=== PATIENT | male | born 1975 | race Two or more races ===

== ENCOUNTER 2018-02-09 13:09 | Emergency (ER) | payer MEDICAID ==
[~2018-02-09] VITALS: Ht 597.6 cm; Wt 114.0 kg
[~2018-02-09 13:09] MED LIST: LISI30TA39 PO; MUPI15CR TP
[2018-02-09] MEDS ORDERED: PRED50TA PO (13:24)
[2018-02-09] MEDS ORDERED: predniSONE 20 mg tablet PO ONE (13:25)
[2018-02-09] MEDS ORDERED: diphenhydrAMINE 25mg capsule PO ONE (13:25)
[2018-02-09 13:51] VITALS: BP 148/81
== END 2018-02-09 13:54 | disposition home or self-care (01) ==
LOC: ER 13:09
DX: R21 Rash and other nonspecific skin eruption (principal); I10 Essential (primary) hypertension; E11.9 Type 2 diabetes mellitus without complications; Z79.899 Other long term (current) drug therapy
CPT/HCPCS: 99283; J7512; Q0163

== ENCOUNTER 2018-09-10 13:12 | Emergency (ER) | payer MEDICAID ==
[~2018-09-10] VITALS: Ht 177.8 cm; Wt 127.3 kg
[~2018-09-10 13:12] MED LIST changes: +PRED50TA PO
[2018-09-10] MEDS ORDERED: gabapentin 400mg capsule PO STA (14:18)
[2018-09-10] MEDS ORDERED: gabapentin 100mg capsule PO STA (14:21)
[2018-09-10 14:56] LABS: BASOPHILS # (AUTO) 0.1 X10'3 (0-0.2); BASOPHILS % (AUTO) 0.7 % (0-1); EOSINOPHILS # (AUTO) 0.1 X10'3 (0-0.9); EOSINOPHILS % (AUTO) 1.6 % (0-6); HEMATOCRIT 48.5 % (42.0-52.0); HEMOGLOBIN 16.4 g/dl (14.0-17.9); LYMPHOCYTES # (AUTO) 1.8 X10'3 (1.1-4.8); LYMPHOCYTES % (AUTO) 22.7 % (21-51); MEAN CORPUSCULAR HEMOGLOBIN 29.3 PG (27.0-31.0); MEAN CORPUSCULAR HGB CONC 33.9 g/dL (33.0-36.5); MEAN CORPUSCULAR VOLUME 86.4 FL (78-98); MEAN PLATELET VOLUME 7.6 FL (7.4-10.4); MONOCYTES # (AUTO) 0.6 X10'3 (0-0.9); MONOCYTES % (AUTO) 7.6 % (2-12); NEUTROPHILS # (AUTO) 5.5 X10'3 (1.8-7.7); NEUTROPHILS % (AUTO) 67.4 % (42-75); PLATELET COUNT 436 X10'3 (140-440); RED BLOOD COUNT 5.61 X10'6 (4.70-6.10); RED CELL DISTRIBUTION WIDTH 11.6 % (11.5-14.5); WHITE BLOOD COUNT 8.1 X10'3 (4.5-11.0)
[2018-09-10 15:24] LABS: ALANINE AMINOTRANSFERASE 18 U/L (12-78); ALBUMIN 3.3 G/DL (3.4-5.0); ALBUMIN/GLOBULIN RATIO 0.8 (1.1-1.5); ALKALINE PHOSPHATASE 109 IU/L (46-116); ANION GAP 14 (8-16); ASPARTATE AMINO TRANSFERASE 17 U/L (10-37); BILIRUBIN,TOTAL 0.3 MG/DL (0.1-1.0); BLOOD UREA NITROGEN 28 MG/DL (7-18); BUN/CREATININE RATIO 23.9 (5.4-32.0); CALCIUM 9.4 MG/DL (8.5-10.1); CHLORIDE 102 MMOL/L (99-107); CREATININE 1.17 MG/DL (0.60-1.10); GLUCOSE 287 MG/DL (70-104); POTASSIUM 3.8 MMOL/L (3.5-5.1); SODIUM 138 MMOL/L (135-145); TOTAL CARBON DIOXIDE 22.2 MMOL/L (24-32); TOTAL PROTEIN 7.4 G/DL (6.4-8.2); eGFR 69 ML/MIN
[2018-09-10] MEDS ORDERED: GABA-530 PO (15:32)
[2018-09-10] MEDS ORDERED: traMADol 50MG tablet PO ONE (15:45)
[2018-09-10] MEDS ORDERED: ketorolac trometh inj. 60 MG/2 ML VIAL IM ONE (15:45)
[2018-09-10 16:01] VITALS: BP 114/70
== END 2018-09-10 16:03 | disposition home or self-care (01) ==
LOC: ER 13:13
DX: M79.671 Pain in right foot (principal); M79.672 Pain in left foot; E11.9 Type 2 diabetes mellitus without complications; I10 Essential (primary) hypertension
CPT/HCPCS: 36415; 80053; 83605; 84145; 84550; 85025; 96372; 99283; J1885

== ENCOUNTER 2018-11-14 13:11 | Inpatient (IN) | payer MEDICAID ==
[~2018-11-14] VITALS: Ht 175.3 cm; Wt 119.0 kg
[~2018-11-14 13:11] MED LIST changes: +GABA-530 PO
[2018-11-14] MEDS ORDERED: normal saline 1000ML IV soln IV ONE (14:15)
[2018-11-14] MEDS ORDERED: vancomycin/NS 1 GM ADD-VANTAGE 250 ML IV ONE ×2 (14:15→15:15)
[2018-11-14] MEDS ORDERED: morphine 4 MG/ML inj SYRINge IV ONE (14:15)
[2018-11-14] MEDS ORDERED: piperacillin/tazo 3.375gm/50ml 50 ML IV ONE (14:15)
[2018-11-14 14:53] LABS: BASOPHILS # (AUTO) 0.2 X10'3 (0-0.2); BASOPHILS % (AUTO) 1.4 % (0-1); EOSINOPHILS # (AUTO) 0.1 X10'3 (0-0.9); EOSINOPHILS % (AUTO) 0.7 % (0-6); HEMATOCRIT 43.3 % (42.0-52.0); HEMOGLOBIN 14.6 g/dl (14.0-17.9); LYMPHOCYTES # (AUTO) 1.8 X10'3 (1.1-4.8); LYMPHOCYTES % (AUTO) 15.8 % (21-51); MEAN CORPUSCULAR HEMOGLOBIN 28.3 PG (27.0-31.0); MEAN CORPUSCULAR HGB CONC 33.8 g/dL (33.0-36.5); MEAN CORPUSCULAR VOLUME 83.9 FL (78-98); MEAN PLATELET VOLUME 7.5 FL (7.4-10.4); MONOCYTES % (AUTO) 8.6 % (2-12); NEUTROPHILS # (AUTO) 8.6 X10'3 (1.8-7.7); NEUTROPHILS % (AUTO) 73.5 % (42-75); PLATELET COUNT 436 X10'3 (140-440); RED BLOOD COUNT 5.16 X10'6 (4.70-6.10); RED CELL DISTRIBUTION WIDTH 12.8 % (11.5-14.5); WHITE BLOOD COUNT 11.7 X10'3 (4.5-11.0)
[2018-11-14 15:11] LABS: ALANINE AMINOTRANSFERASE 26 U/L (12-78); ALBUMIN/GLOBULIN RATIO 0.7 (1.1-1.5); ALKALINE PHOSPHATASE 99 IU/L (46-116); ANION GAP 8 (8-16); ASPARTATE AMINO TRANSFERASE 22 U/L (10-37); BILIRUBIN,TOTAL 0.5 MG/DL (0.1-1.0); BLOOD UREA NITROGEN 13 MG/DL (7-18); BUN/CREATININE RATIO 13.5 (5.4-32.0); CALCIUM 8.8 MG/DL (8.5-10.1); CHLORIDE 102 MMOL/L (99-107); CREATININE 0.96 MG/DL (0.60-1.10); GLUCOSE 249 MG/DL (70-104); POTASSIUM 3.9 MMOL/L (3.5-5.1); SODIUM 135 MMOL/L (135-145); TOTAL CARBON DIOXIDE 25.2 MMOL/L (24-32); TOTAL PROTEIN 7.6 G/DL (6.4-8.2); eGFR 86 ML/MIN
[2018-11-14] MEDS: normal saline 1000ml 1,000 ML IV SCH ×2 (16:11→23:10)
[2018-11-14] MEDS ORDERED: HYDROmorphone inj. 0.5 MG/0.5 ML DISP.SYRIN IV PRN (16:15)
[2018-11-14] MEDS ORDERED: magnesium hydroxide 30ml (MOM) UD suspension PO PRN (16:15)
[2018-11-14] MEDS ORDERED: acetaminophen 325mg tablet PO PRN (16:15)
[2018-11-14] MEDS ORDERED: ondansetron/PF 4mg/2ml inj IV PRN (16:15)
[2018-11-14] MEDS ORDERED: mag hydrox/Alum hydrox/simeth 30ml oral suspension PO PRN (16:15)
[2018-11-14] MEDS ORDERED: GABA-530 PO (16:36)
[2018-11-14] MEDS ORDERED: ASPI-611 PO (16:36)
[2018-11-14] MEDS ORDERED: INSU100C10 SQ (16:40)
[2018-11-14] MEDS ORDERED: INSU100V9 SQ (16:40)
[2018-11-14] MEDS ORDERED: levoFLOXACIN-Levaquin 750MG/D5 150 ML IV SCH (17:15)
[2018-11-14] MEDS: HYDROcodone/acetaminophen 5mg/325mg tablet PO PRN (19:29)
[2018-11-14] MEDS ORDERED: dextrose 50%-water 50ml dispensing syringe IV PRN ×2 (21:05)
[2018-11-14] MEDS ORDERED: glucagon, human recombinant 1mg kit SUBCUT PRN (21:05)
[2018-11-14] MEDS ORDERED: MESSAGE TO PHARMACY PO ONE (21:05)
[2018-11-14] MEDS ORDERED: dextrose ORAL solution 15 GM/59 ML bottle PO PRN ×2 (21:05)
[2018-11-14 21:30] LABS: HEMOGLOBIN A1C 10.3 % (4.5-6.2)
--- NOTE | 2018-11-14 21:50 | NUR ---
dr. yanes updated that pt reporting over the past 1 hr he has been very sweaty, and feeling like "he cant catch his breath" He wondered if it was the norco i gave himi 1 hr ago or if his blood sugar was high or low. accucheck 250 was 255 prior to dinner 3 hr ago. vss, ra sats 98% and rr 20. Pt stood up and got into WC and reproted no dizziness. Receiving AISSATOU Mejía also notified.
[2018-11-14 22:00] VITALS: BP 138/100
--- NOTE | 2018-11-14 22:49 | NUR ---
RECEIVED PATIENT FROM ER IN STABLE CONDITION TO ROOM 4012B. NO C/O PAIN. VSS. PICTURES TAKEN.
[2018-11-14] MEDS: insulin glargine (Lantus) pen - multi-dose SQ SCH (23:12)
[2018-11-15 06:05] VITALS: BP 139/80
--- NOTE | 2018-11-15 06:10 | NUR ---
Patient in room ORTHO 4012. I have received report from GREG REYEZ and had the opportunity to ask questions and assume patient care.
--- NOTE | 2018-11-15 06:14 | NUR ---
REPORT GIVEN TO NARDA REYEZ
[2018-11-15 06:21] LABS: BASOPHILS # (AUTO) 0.1 X10'3 (0-0.2); BASOPHILS % (AUTO) 1.3 % (0-1); EOSINOPHILS # (AUTO) 0.2 X10'3 (0-0.9); EOSINOPHILS % (AUTO) 1.6 % (0-6); HEMATOCRIT 43.2 % (42.0-52.0); HEMOGLOBIN 14.6 g/dl (14.0-17.9); LYMPHOCYTES # (AUTO) 2.5 X10'3 (1.1-4.8); LYMPHOCYTES % (AUTO) 25.5 % (21-51); MEAN CORPUSCULAR HEMOGLOBIN 28.7 PG (27.0-31.0); MEAN CORPUSCULAR HGB CONC 33.7 g/dL (33.0-36.5); MEAN CORPUSCULAR VOLUME 85.1 FL (78-98); MEAN PLATELET VOLUME 7.9 FL (7.4-10.4); MONOCYTES # (AUTO) 0.9 X10'3 (0-0.9); MONOCYTES % (AUTO) 9.2 % (2-12); NEUTROPHILS # (AUTO) 6.2 X10'3 (1.8-7.7); NEUTROPHILS % (AUTO) 62.4 % (42-75); PLATELET COUNT 349 X10'3 (140-440); RED BLOOD COUNT 5.08 X10'6 (4.70-6.10); RED CELL DISTRIBUTION WIDTH 12.9 % (11.5-14.5); WHITE BLOOD COUNT 9.9 X10'3 (4.5-11.0)
[2018-11-15 06:34] LABS: ALBUMIN 2.6 G/DL (3.4-5.0); ANION GAP 7 (8-16); BLOOD UREA NITROGEN 14 MG/DL (7-18); BUN/CREATININE RATIO 15.9 (5.4-32.0); CALCIUM 8.8 MG/DL (8.5-10.1); CHLORIDE 103 MMOL/L (99-107); CREATININE 0.88 MG/DL (0.60-1.10); GLUCOSE 241 MG/DL (70-104); SODIUM 136 MMOL/L (135-145); TOTAL CARBON DIOXIDE 25.6 MMOL/L (24-32); eGFR > 90 ML/MIN
--- NOTE | 2018-11-15 07:13 | NUR ---
PAGER ID: [phone] MESSAGE: NARDA [id number] RE: ANGELA [id number] PT REPORTS SOB AND HEAVINESS, EKG SHOWS PROLONGED QT
[2018-11-15] MEDS: enoxaparin 40mg/0.4ml syringe SUBCUT SCH (07:24)
[2018-11-15] MEDS: insulin Lispro (HumaLOG) vial - multi-dose SQ SCH ×3 (08:30→19:15)
[2018-11-15 10:00] VITALS: BP 152/110
[2018-11-15] MEDS: normal saline 1000ml 1,000 ML IV SCH ×3 (12:11→19:18)
[2018-11-15] MEDS: clindamycin 600mg/D5W 50ml 50 ML IV SCH ×2 (13:16→19:22)
--- NOTE | 2018-11-15 15:35 | NUR ---
DM consult. Patient has h/o DM with current A1c of 10.3, h/o diabetic neuropathy presents with infected, edematous DM ulcer to right third toe. 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 Per another MD note patient reported that he does not take his lantus and takes short acting "whenever he needs." RD attempted visit with pt at bedside however pt was sleeping and did not wake with verbal cues. Written DM ed with referral to outpatient DM class and RD contact information provided. Will f/u with patient tomorrow to provide verbal ed. Recommend: 1. continue carb controlled diet 2. Monitor need for ONS 3. F/u with verbal ed prior to d/c 4. Weight per rx Addendum: 11/15/18 at [address] Amended: Links added.
[2018-11-15] MEDS: gabapentin 100mg capsule PO SCH (16:16)
[2018-11-15 18:00] VITALS: BP 124/89
--- NOTE | 2018-11-15 18:10 | NUR ---
Problems reprioritized. Patient report given, questions answered & plan of care reviewed with SHAYNE REYEZ.
--- NOTE | 2018-11-15 18:30 | NUR ---
PATIENT REPORT RECEIVED FROM NARDA REYEZ.
[2018-11-15] MEDS: insulin glargine (Lantus) pen - multi-dose SQ SCH (21:53)
[2018-11-15] MEDS ORDERED: VANCOMYCIN LEVEL IV ONE (22:30)
[2018-11-16] MEDS: gabapentin 100mg capsule PO SCH ×3 (00:08→16:08)
[2018-11-16] MEDS: HYDROcodone/acetaminophen 5mg/325mg tablet PO PRN (01:01)
[2018-11-16] MEDS: clindamycin 600mg/D5W 50ml 50 ML IV SCH ×3 (02:39→13:18)
--- NOTE | 2018-11-16 06:10 | NUR ---
Patient in room ORTHO 4012. I have received report from ISHAN RN AND EPIFANIO RN and had the opportunity to ask questions and assume patient care.
--- NOTE | 2018-11-16 06:11 | NUR ---
Problems reprioritized. Patient report given to Cassi REYEZ, questions answered & plan of care reviewed with .
[2018-11-16 06:49] LABS: BASOPHILS # (AUTO) 0.1 X10'3 (0-0.2); BASOPHILS % (AUTO) 0.7 % (0-1); EOSINOPHILS # (AUTO) 0.1 X10'3 (0-0.9); EOSINOPHILS % (AUTO) 1.2 % (0-6); HEMATOCRIT 45.5 % (42.0-52.0); HEMOGLOBIN 15.3 g/dl (14.0-17.9); LYMPHOCYTES # (AUTO) 2.1 X10'3 (1.1-4.8); LYMPHOCYTES % (AUTO) 20.1 % (21-51); MEAN CORPUSCULAR HEMOGLOBIN 28.4 PG (27.0-31.0); MEAN CORPUSCULAR HGB CONC 33.7 g/dL (33.0-36.5); MEAN CORPUSCULAR VOLUME 84.4 FL (78-98); MEAN PLATELET VOLUME 8.1 FL (7.4-10.4); NEUTROPHILS # (AUTO) 7.4 X10'3 (1.8-7.7); PLATELET COUNT 419 X10'3 (140-440); RED BLOOD COUNT 5.39 X10'6 (4.70-6.10); RED CELL DISTRIBUTION WIDTH 12.6 % (11.5-14.5); WHITE BLOOD COUNT 10.7 X10'3 (4.5-11.0)
[2018-11-16 07:03] LABS: ALBUMIN 2.5 G/DL (3.4-5.0); ANION GAP 10 (8-16); BLOOD UREA NITROGEN 10 MG/DL (7-18); BUN/CREATININE RATIO 13.2 (5.4-32.0); CALCIUM 8.7 MG/DL (8.5-10.1); CHLORIDE 103 MMOL/L (99-107); CREATININE 0.76 MG/DL (0.60-1.10); GLUCOSE 137 MG/DL (70-104); SODIUM 138 MMOL/L (135-145); TOTAL CARBON DIOXIDE 25.2 MMOL/L (24-32); eGFR > 90 ML/MIN
--- NOTE | 2018-11-16 07:25 | NUR ---
PAGER ID: [phone] MESSAGE: NARDA [id number] RE: ANGELA [id number] CRITICAL K 3.0, CAN I PUT ON PROTOCOL?
[2018-11-16] MEDS ORDERED: potassium Cl 20 mEq SR tablet PO PRN (07:30)
[2018-11-16] MEDS ORDERED: potassium Cl 40MEQ/NS 500ml 500 ML IV PRN ×2 (07:30)
[2018-11-16] MEDS: normal saline 1000ml 1,000 ML IV SCH (07:58)
[2018-11-16] MEDS ORDERED: aspirin 81mg tablet.DR PO SCH (08:00)
[2018-11-16] MEDS ORDERED: LISINOPRIL 30 MG PO SCH (08:00)
[2018-11-16] MEDS ORDERED: non-formulary drug (Aspirin (Aspir 81) 1 TAB) PO SCH (08:00)
[2018-11-16] MEDS ORDERED: lisinopril 10 MG tablet PO SCH (08:00)
[2018-11-16] MEDS: potassium Cl 20 mEq SR tablet PO PRN ×3 (08:02→16:08)
[2018-11-16] MEDS: enoxaparin 40mg/0.4ml syringe SUBCUT SCH (08:08)
[2018-11-16] MEDS: insulin Lispro (HumaLOG) vial - multi-dose SQ SCH ×2 (08:40→13:17)
[2018-11-16 10:00] VITALS: BP 143/97
[2018-11-16] MEDS ORDERED: CLIN150C2 PO (11:28)
--- NOTE | 2018-11-16 11:29 | NUR ---
PATIENT CAN BE DISCHARGED AFTER HE RECEIVES HIS POTASSIUM REPLACEMENTS, PER DR GARZA.
--- NOTE | 2018-11-16 15:14 | NUR ---
DM consult. Patient has h/o DM with current A1c of 10.3, h/o diabetic neuropathy presents with infected, edematous DM ulcer to right third toe. 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 Per another MD note patient reported that he does not take his lantus and takes short acting "whenever he needs." DIAMOND attempted visit with pt at bedside however pt was sleeping and did not wake with verbal cues. Patient seen at bedside today to discuss the written DM ed with referral to outpatient DM class. Patient reported to RD that he is aware of needing to take a long acting and short acting insulin but does not take it. He says he "does not care" d/t recently losing contact with his children and being homeless. Pt does not feel motivated to care for himself due to many personal barriers. Encouraged that patient take his medications as prescribed and to attend outpatient DM class. Discussed risk of not controlling his blood glucose and his wound. Patient stated his previous A1c was 18. Recommend: 1. continue carb controlled diet 2. Monitor need for ONS 3. Weight per rx Addendum: 11/16/18 at [address] Amended: Links added.
== END 2018-11-16 16:25 | disposition home or self-care (01) | DRG 342 ==
LOC: ER 13:11 → ORTHO 4S 16:13 → CMPBEDREQ 23:17
PROVIDERS: ADMIT Family Medicine; ATTEND Family Medicine
DX: M84.477A Pathological fracture, right toe(s), initial encounter for fracture (principal); E11.49 Type 2 diabetes mellitus with other diabetic neurological complication; E11.621 Type 2 diabetes mellitus with foot ulcer; L97.519 Non-pressure chronic ulcer of other part of right foot with unspecified severity; L03.115 Cellulitis of right lower limb; I10 Essential (primary) hypertension; Z79.4 Long term (current) use of insulin; Z91.14 Patient's other noncompliance with medication regimen; Z79.899 Other long term (current) drug therapy; Z79.82 Long term (current) use of aspirin; E87.6 Hypokalemia
CPT/HCPCS: 36415; 73630; 80048; 80053; 82948; 83036; 83605; 84145; 85025; 87040; 87070; 93005; 96365; 96368; 96375; 99285; G0378; J1650; J1815; J1956; J2270; J2543; J3370; J3490; J7030

== ENCOUNTER 2019-01-09 17:43 | Emergency (ER) | payer MEDICAID ==
[~2019-01-09] VITALS: Ht 157.5 cm; Wt 113.6 kg
[~2019-01-09 17:43] MED LIST changes: +ASPI-611 PO; +INSU100C10 SQ; +INSU100V9 SQ; -MUPI15CR TP; -PRED50TA PO
[2019-01-09] MEDS ORDERED: normal saline 1000ML IV soln IVB ONE (18:45)
[2019-01-09 19:22] LABS: BASOPHILS # (AUTO) 0.1 X10'3 (0-0.2); BASOPHILS % (AUTO) 0.4 % (0-1); EOSINOPHILS % (AUTO) 0.2 % (0-6); HEMATOCRIT 45.2 % (42.0-52.0); HEMOGLOBIN 15.4 g/dl (14.0-17.9); LYMPHOCYTES # (AUTO) 1.2 X10'3 (1.1-4.8); LYMPHOCYTES % (AUTO) 8.6 % (21-51); MEAN CORPUSCULAR HEMOGLOBIN 29.2 PG (27.0-31.0); MEAN CORPUSCULAR VOLUME 85.8 FL (78-98); MEAN PLATELET VOLUME 7.8 FL (7.4-10.4); MONOCYTES # (AUTO) 0.9 X10'3 (0-0.9); MONOCYTES % (AUTO) 6.8 % (2-12); NEUTROPHILS # (AUTO) 11.5 X10'3 (1.8-7.7); PLATELET COUNT 358 X10'3 (140-440); RED BLOOD COUNT 5.27 X10'6 (4.70-6.10); RED CELL DISTRIBUTION WIDTH 13.1 % (11.5-14.5); WHITE BLOOD COUNT 13.7 X10'3 (4.5-11.0)
[2019-01-09 19:29] LABS: ALANINE AMINOTRANSFERASE 22 U/L (12-78); ALBUMIN 2.7 G/DL (3.4-5.0); ALBUMIN/GLOBULIN RATIO 0.6 (1.1-1.5); ALKALINE PHOSPHATASE 85 IU/L (46-116); ANION GAP 10 (8-16); ASPARTATE AMINO TRANSFERASE 20 U/L (10-37); BLOOD UREA NITROGEN 15 MG/DL (7-18); BUN/CREATININE RATIO 10.6 (5.4-32.0); CALCIUM 8.7 MG/DL (8.5-10.1); CHLORIDE 101 MMOL/L (99-107); CREATININE 1.42 MG/DL (0.60-1.10); GLUCOSE 301 MG/DL (70-104); POTASSIUM 3.3 MMOL/L (3.5-5.1); SODIUM 133 MMOL/L (135-145); TOTAL CARBON DIOXIDE 22.3 MMOL/L (24-32); TOTAL PROTEIN 7.1 G/DL (6.4-8.2); eGFR 55 ML/MIN
[2019-01-09] MEDS ORDERED: piperacillin/tazo 3.375gm/50ml 50 ML IV ONE (20:00)
[2019-01-09] MEDS ORDERED: normal saline 1000ML IV soln IV ONE (20:00)
--- NOTE | 2019-01-09 20:30 | NUR ---
I ASKED MD ANDERSON IF HE INTENDED PT TO HAVE 3L NS, HE SAID ONLY GIVE 2L, CANCELLED 1L, ONLY 2L GIVEN
[2019-01-09 20:40] VITALS: BP 139/98
[2019-01-09] MEDS ORDERED: AMOX-422 PO (20:46)
[2019-01-09] MEDS ORDERED: SULF1TAB49 PO (20:46)
[2019-01-09 20:48] LABS: CLARITY,URINE CLEAR (Clear); COLOR,URINE YELLOW (Yellow); GLUCOSE, URINE >=1000 mg/dl (Neg); KETONES,URINE NEGATIVE (Neg); LEUKOCYTE ESTERASE ,URINE NEGATIVE (Neg); NITRITES, URINE NEGATIVE (Neg); OCCULT BLOOD,URINE TRACE-INTACT (Neg); PROTEIN,URINE >=300 mg/dl (Neg)
[2019-01-09] MEDS ORDERED: HYDR-4353 PO (20:49)
[2019-01-09] MEDS ORDERED: HYDROcodone/acetaminophen 10/325mg tab PO ONE (20:50)
[2019-01-09 20:52] LABS: UA COLLECTION TYPE CLN CATCH MIDSTREAM
[2019-01-09 20:57] LABS: WBC,URINE NONE SEEN /HPF (0-4)
[2019-01-09 20:58] LABS: BACTERIA,URINE NONE SEEN /HPF (Neg); RBC,URINE NONE SEEN /HPF (0-2)
[2019-01-09 20:59] LABS: SQUAMOUS EPITHELIAL CELL,UR FEW /LPF (FEW)
== END 2019-01-09 21:21 | disposition home or self-care (01) ==
LOC: ER 17:44
DX: L02.416 Cutaneous abscess of left lower limb (principal); L03.116 Cellulitis of left lower limb; E11.65 Type 2 diabetes mellitus with hyperglycemia; I10 Essential (primary) hypertension; Z98.890 Other specified postprocedural states; Z79.82 Long term (current) use of aspirin; Z79.4 Long term (current) use of insulin
CPT/HCPCS: 36415; 80053; 81001; 82948; 85025; 96365; 99283; J2543; J7030

== ENCOUNTER 2019-02-05 11:05 | Emergency (ER) | payer MEDICAID ==
[~2019-02-05] VITALS: Ht 177.8 cm; Wt 113.6 kg
[~2019-02-05 11:05] MED LIST changes: +HYDR-4353 PO
[2019-02-05 11:34] LABS: BASOPHILS # (AUTO) 0.1 X10'3 (0-0.2); BASOPHILS % (AUTO) 0.8 % (0-1); EOSINOPHILS # (AUTO) 0.1 X10'3 (0-0.9); EOSINOPHILS % (AUTO) 1.6 % (0-6); HEMATOCRIT 44.1 % (42.0-52.0); HEMOGLOBIN 14.7 g/dl (14.0-17.9); LYMPHOCYTES # (AUTO) 1.7 X10'3 (1.1-4.8); LYMPHOCYTES % (AUTO) 20.4 % (21-51); MEAN CORPUSCULAR HGB CONC 33.2 g/dL (33.0-36.5); MEAN CORPUSCULAR VOLUME 87.3 FL (78-98); MEAN PLATELET VOLUME 7.7 FL (7.4-10.4); MONOCYTES # (AUTO) 0.7 X10'3 (0-0.9); MONOCYTES % (AUTO) 8.3 % (2-12); NEUTROPHILS # (AUTO) 5.9 X10'3 (1.8-7.7); NEUTROPHILS % (AUTO) 68.9 % (42-75); PLATELET COUNT 310 X10'3 (140-440); RED BLOOD COUNT 5.05 X10'6 (4.70-6.10); RED CELL DISTRIBUTION WIDTH 13.5 % (11.5-14.5); WHITE BLOOD COUNT 8.5 X10'3 (4.5-11.0)
[2019-02-05 11:45] LABS: PARTIAL THROMBOPLASTIN TIME 26 SECONDS (22-32)
[2019-02-05 11:48] LABS: ALANINE AMINOTRANSFERASE 27 U/L (12-78); ALBUMIN 2.7 G/DL (3.4-5.0); ALBUMIN/GLOBULIN RATIO 0.6 (1.1-1.5); ALKALINE PHOSPHATASE 142 IU/L (46-116); ANION GAP 7 (8-16); ASPARTATE AMINO TRANSFERASE 19 U/L (10-37); BILIRUBIN,TOTAL 0.4 MG/DL (0.1-1.0); BLOOD UREA NITROGEN 16 MG/DL (7-18); BUN/CREATININE RATIO 12.9 (5.4-32.0); CALCIUM 8.6 MG/DL (8.5-10.1); CHLORIDE 100 MMOL/L (99-107); CREATININE 1.24 MG/DL (0.60-1.10); POTASSIUM 4.1 MMOL/L (3.5-5.1); SODIUM 131 MMOL/L (135-145); TOTAL CARBON DIOXIDE 24.4 MMOL/L (24-32); eGFR 64 ML/MIN
[2019-02-05 11:51] LABS: GLUCOSE 494 MG/DL (70-104)
[2019-02-05 12:16] VITALS: BP_DIAS 107
[2019-02-05] MEDS ORDERED: insulin glargine (Lantus) pen - multi-dose SQ ONE (13:00)
[2019-02-05] MEDS ORDERED: lisinopril 10 MG tablet PO ONE (13:00)
[2019-02-05] MEDS ORDERED: insulin regular, human 10 units/0.1 ml syringe SQ ONE (13:00)
[2019-02-05] MEDS ORDERED: nitroGLYCERIN 0.2mg/hour patch TD ONE (13:00)
[2019-02-05] MEDS ORDERED: aspirin 81mg tab.chew PO ONE (13:00)
[2019-02-05] MEDS ORDERED: LISI30TA4 PO (13:14)
[2019-02-05 13:21] VITALS: BP_SYST 166
== END 2019-02-05 13:59 | disposition home or self-care (01) ==
LOC: ER 11:07
DX: R06.00 Dyspnea, unspecified (principal); R06.02 Shortness of breath; R05 Cough; R07.89 Other chest pain; I10 Essential (primary) hypertension; E11.65 Type 2 diabetes mellitus with hyperglycemia; Z79.4 Long term (current) use of insulin; Z79.82 Long term (current) use of aspirin; Z79.899 Other long term (current) drug therapy; Z98.890 Other specified postprocedural states; Z91.19 Patient's noncompliance with other medical treatment and regimen
CPT/HCPCS: 36415; 71045; 80053; 84484; 85025; 85610; 85730; 93005; 96372; 99284; J1815

== ENCOUNTER 2019-02-06 11:25 | Emergency (ER) | payer MEDICAID ==
[~2019-02-06] VITALS: Ht 177.8 cm; Wt 115.0 kg
[~2019-02-06 11:25] MED LIST changes: +LISI30TA4 PO
[2019-02-06] MEDS ORDERED: insulin regular, human 10 units/0.1 ml syringe IV ONE (11:30)
[2019-02-06] MEDS ORDERED: normal saline 1000ML IV soln IVB ONE (11:30)
[2019-02-06] MEDS ORDERED: insulin regular, human 10 units/0.1 ml syringe SQ ONE (11:30)
[2019-02-06 11:48] LABS: BASOPHILS # (AUTO) 0.1 X10'3 (0-0.2); BASOPHILS % (AUTO) 1.2 % (0-1); EOSINOPHILS # (AUTO) 0.1 X10'3 (0-0.9); EOSINOPHILS % (AUTO) 1.6 % (0-6); HEMATOCRIT 42.4 % (42.0-52.0); LYMPHOCYTES # (AUTO) 1.3 X10'3 (1.1-4.8); LYMPHOCYTES % (AUTO) 15.9 % (21-51); MEAN CORPUSCULAR HEMOGLOBIN 28.8 PG (27.0-31.0); MEAN CORPUSCULAR VOLUME 87.2 FL (78-98); MEAN PLATELET VOLUME 7.8 FL (7.4-10.4); MONOCYTES # (AUTO) 0.7 X10'3 (0-0.9); NEUTROPHILS % (AUTO) 73.3 % (42-75); PLATELET COUNT 298 X10'3 (140-440); RED BLOOD COUNT 4.87 X10'6 (4.70-6.10); RED CELL DISTRIBUTION WIDTH 13.7 % (11.5-14.5); WHITE BLOOD COUNT 8.2 X10'3 (4.5-11.0)
--- NOTE | 2019-02-06 11:56 | NUR ---
OHLFS WANTS BOTH DOSES OF HUMALIN GIVEN TO THE PT IV AND SQ.
[2019-02-06 11:59] LABS: ALANINE AMINOTRANSFERASE 22 U/L (12-78); ALBUMIN 2.6 G/DL (3.4-5.0); ALBUMIN/GLOBULIN RATIO 0.6 (1.1-1.5); ALKALINE PHOSPHATASE 154 IU/L (46-116); ANION GAP 7 (8-16); ASPARTATE AMINO TRANSFERASE 14 U/L (10-37); BILIRUBIN,TOTAL 0.3 MG/DL (0.1-1.0); BLOOD UREA NITROGEN 16 MG/DL (7-18); BUN/CREATININE RATIO 13.8 (5.4-32.0); CALCIUM 8.7 MG/DL (8.5-10.1); CHLORIDE 103 MMOL/L (99-107); CREATININE 1.16 MG/DL (0.60-1.10); GLUCOSE 441 MG/DL (70-104); POTASSIUM 4.2 MMOL/L (3.5-5.1); SODIUM 134 MMOL/L (135-145); TOTAL CARBON DIOXIDE 24.5 MMOL/L (24-32); TOTAL PROTEIN 6.8 G/DL (6.4-8.2); eGFR 69 ML/MIN
[2019-02-06 12:25] LABS: CLARITY,URINE CLEAR (Clear); COLOR,URINE YELLOW (Yellow); GLUCOSE, URINE >=1000 mg/dl (Neg); KETONES,URINE NEGATIVE (Neg); LEUKOCYTE ESTERASE ,URINE NEGATIVE (Neg); NITRITES, URINE NEGATIVE (Neg); OCCULT BLOOD,URINE NEGATIVE (Neg); PROTEIN,URINE 30 mg/dl (Neg); UROBILINOGEN,URINE 0.2 E.U/dL (0.2-1.0)
[2019-02-06 12:30] LABS: UA COLLECTION TYPE CLN CATCH MIDSTREAM
[2019-02-06 12:37] LABS: BACTERIA,URINE NONE SEEN /HPF (Neg); RBC,URINE NONE SEEN /HPF (0-2); SQUAMOUS EPITHELIAL CELL,UR FEW /LPF (FEW); WBC,URINE NONE SEEN /HPF (0-4)
[2019-02-06 13:08] VITALS: BP 163/92
== END 2019-02-06 13:13 | disposition home or self-care (01) ==
LOC: ER 11:25
DX: E11.65 Type 2 diabetes mellitus with hyperglycemia (principal); R22.0 Localized swelling, mass and lump, head; L53.9 Erythematous condition, unspecified; I10 Essential (primary) hypertension; Z79.82 Long term (current) use of aspirin; Z79.4 Long term (current) use of insulin; Z79.899 Other long term (current) drug therapy; Z98.890 Other specified postprocedural states
CPT/HCPCS: 36415; 80053; 81001; 82948; 84145; 85025; 96361; 96372; 96374; 99283; J1815; J7030; 96360

== ENCOUNTER 2019-02-10 10:15 | Emergency (ER) | payer MEDICAID ==
[~2019-02-10] VITALS: Ht 177.8 cm; Wt 117.3 kg
[2019-02-10 10:37] VITALS: BP 140/91
[2019-02-10] MEDS ORDERED: LIDOcaine 1% w/epiNEPHrine 1:200,000 30ml vial IM ONE (11:40)
[2019-02-10] MEDS ORDERED: ondansetron/PF 4mg/2ml inj IV ONE (11:45)
[2019-02-10] MEDS ORDERED: CEPH-572 PO (12:06)
[2019-02-10] MEDS ORDERED: SULF1TAB49 PO (12:06)
== END 2019-02-10 12:16 | disposition home or self-care (01) ==
LOC: ER 10:16
DX: L02.01 Cutaneous abscess of face (principal); I10 Essential (primary) hypertension; E11.9 Type 2 diabetes mellitus without complications; Z98.890 Other specified postprocedural states; Z79.82 Long term (current) use of aspirin; Z79.4 Long term (current) use of insulin; Z79.899 Other long term (current) drug therapy
CPT/HCPCS: 10060; 99283

== ENCOUNTER 2019-10-09 12:10 | Emergency (ER) | payer MEDICAID, OTHER ==
[~2019-10-09] VITALS: Ht 175.3 cm; Wt 116.2 kg
[~2019-10-09 12:10] MED LIST changes: -HYDR-4353 PO
--- NOTE | 2019-10-09 12:42 | NUR ---
Provider is with the patient at this time.
[2019-10-09] MEDS ORDERED: CEPH500C5 PO (12:49)
[2019-10-09] MEDS ORDERED: SULF1TAB49 PO (12:49)
[2019-10-09 13:01] VITALS: BP 149/87
== END 2019-10-09 13:00 | disposition home or self-care (01) ==
LOC: ER 12:10
DX: L03.221 Cellulitis of neck (principal); R22.1 Localized swelling, mass and lump, neck; L02.11 Cutaneous abscess of neck; I10 Essential (primary) hypertension; E11.9 Type 2 diabetes mellitus without complications; Z79.82 Long term (current) use of aspirin; Z79.4 Long term (current) use of insulin; Z79.899 Other long term (current) drug therapy
CPT/HCPCS: 99283

== ENCOUNTER 2020-08-03 11:00 | Emergency (ER) | payer MEDICAID, OTHER ==
[~2020-08-03] VITALS: Ht 175.3 cm; Wt 140.0 kg
[2020-08-03 11:06] VITALS: BP 167/114
[2020-08-03] MEDS ORDERED: LIDOcaine Viscous 15ml cup MM PRN ×2 (11:45→12:15)
[2020-08-03] MEDS ORDERED: PENI500T2 PO (12:18)
== END 2020-08-03 12:45 | disposition home or self-care (01) ==
LOC: ER 11:01
DX: K04.7 Periapical abscess without sinus (principal); R59.0 Localized enlarged lymph nodes; I10 Essential (primary) hypertension; E11.9 Type 2 diabetes mellitus without complications; Z79.82 Long term (current) use of aspirin; Z79.84 Long term (current) use of oral hypoglycemic drugs; Z79.899 Other long term (current) drug therapy
CPT/HCPCS: 41800; 99284

== ENCOUNTER 2020-12-25 01:08 | Emergency (ER) | payer MEDICAID ==
[~2020-12-25] VITALS: Ht 175.3 cm; Wt 121.9 kg
[2020-12-25] MEDS ORDERED: normal saline 1000ML IV soln IVB ONE (01:25)
[2020-12-25] MEDS ORDERED: insulin regular, human U-100 3ml vial - multi-dose IV ONE (01:25)
[2020-12-25 02:07] LABS: ALANINE AMINOTRANSFERASE 34 U/L (12-78); ALBUMIN 2.1 G/DL (3.4-5.0); ALBUMIN/GLOBULIN RATIO 0.4 (1.1-1.5); ALKALINE PHOSPHATASE 215 IU/L (46-116); ANION GAP 7 (8-16); ASPARTATE AMINO TRANSFERASE 24 U/L (10-37); BILIRUBIN,TOTAL 0.4 MG/DL (0.1-1.0); BLOOD UREA NITROGEN 13 MG/DL (7-18); BUN/CREATININE RATIO 9.4 (5.4-32.0); CALCIUM 8.9 MG/DL (8.5-10.1); CHLORIDE 95 MMOL/L (99-107); CREATININE 1.38 MG/DL (0.60-1.10); SODIUM 130 MMOL/L (135-145); TOTAL CARBON DIOXIDE 28.2 MMOL/L (24-32); eGFR 56 ML/MIN
[2020-12-25 02:08] LABS: BASOPHILS % (AUTO) 0.5 % (0-1); EOSINOPHILS # (AUTO) 0.1 X10'3 (0-0.9); EOSINOPHILS % (AUTO) 1.4 % (0-6); HEMATOCRIT 47.1 % (42.0-52.0); HEMOGLOBIN 15.3 g/dl (14.0-17.9); LYMPHOCYTES # (AUTO) 1.2 X10'3 (1.1-4.8); LYMPHOCYTES % (AUTO) 14.6 % (21-51); MEAN CORPUSCULAR HEMOGLOBIN 26.8 PG (27.0-31.0); MEAN CORPUSCULAR HGB CONC 32.4 g/dL (33.0-36.5); MEAN CORPUSCULAR VOLUME 82.5 FL (78-98); MEAN PLATELET VOLUME 7.8 FL (7.4-10.4); MONOCYTES # (AUTO) 0.9 X10'3 (0-0.9); MONOCYTES % (AUTO) 11.3 % (2-12); NEUTROPHILS # (AUTO) 5.9 X10'3 (1.8-7.7); NEUTROPHILS % (AUTO) 72.2 % (42-75); PLATELET COUNT 424 X10'3 (140-440); RED BLOOD COUNT 5.71 X10'6 (4.70-6.10); RED CELL DISTRIBUTION WIDTH 14.5 % (11.5-14.5); WHITE BLOOD COUNT 8.2 X10'3 (4.5-11.0)
[2020-12-25 02:09] LABS: GLUCOSE 604 MG/DL (70-104)
[2020-12-25] MEDS ORDERED: ondansetron/PF 4mg/2ml inj IV ONE (02:55)
[2020-12-25] MEDS ORDERED: morphine 4 MG/ML inj SYRINge IV PRN (02:55)
--- NOTE | 2020-12-25 04:01 | NUR ---
ACCUCHECK NOW 230. DR. ANDERSON AWARE AND TO ORDER EKG. PTS PAIN IS IMPROVED.
[2020-12-25 04:36] LABS: TROPONIN I < 0.04 NG/ML (0.0-0.05)
[2020-12-25 05:08] VITALS: BP 115/79
--- NOTE | 2020-12-25 05:08 | NUR ---
MD REQUEST PO CHALLENGE. PT PROVIDED CRACKERS JELLO AND SANDWICH AND PITCHER OF ICE WATER. DENIES AN NAUSEA AND REPORTS HUNGER.
--- NOTE | 2020-12-25 05:23 | NUR ---
PT TOLERATING PO CHALLENGE WITH NO PROBLEMS. JUST GOT UP TO GO TO [place]. WALKING WITH STEADY GAIT.
[2020-12-25] MEDS ORDERED: INSU200I SQ (05:45)
[2020-12-25] MEDS ORDERED: LANTUS SQ (05:45)
--- NOTE | 2020-12-25 05:57 | NUR ---
PT DC READY AND WITH STABLE VS. STATES HE DOES NOT HAVE A BLOOD SUGAR CHECKING DEVISE IT WAS STOLEN. DR. ANDERSON UPDATED AND NURSING CLAIMS CONFIGURATION ANALYST UPDATED. SHE WILL TRY TO FIND PT AN ACCUCHECK MACHINE PRIOR TO DC.
--- NOTE | 2020-12-25 06:09 | NUR ---
UNABLE TO FIND AN ACCUCHECK MACHINE TO PROVIDE PATIENT, PER ALEKSANDER MCMULLEN SUP. PT PROVIDED "[employer]" CARD FOR A DISCOUNT FOR PURCHASE
== END 2020-12-25 06:18 | disposition home or self-care (01) ==
LOC: ER 01:08
DX: E11.65 Type 2 diabetes mellitus with hyperglycemia (principal); R35.0 Frequency of micturition; M54.89 Other dorsalgia; R06.02 Shortness of breath; I10 Essential (primary) hypertension; Z79.4 Long term (current) use of insulin; Z91.19 Patient's noncompliance with other medical treatment and regimen; Z98.890 Other specified postprocedural states; Z79.82 Long term (current) use of aspirin; Z79.899 Other long term (current) drug therapy
CPT/HCPCS: 36415; 71045; 80053; 82948; 84484; 85025; 93005; 96374; 96375; 99285; J2270; J2405; J7030; J1815

== ENCOUNTER 2021-01-15 07:18 | Emergency (ER) | payer MEDICAID, OTHER ==
[~2021-01-15] VITALS: Ht 175.3 cm; Wt 122.7 kg
[~2021-01-15 07:18] MED LIST changes: +APIX5TAB3 PO; +FURO-149 PO; -GABA-530 PO; -LISI30TA4 PO; +METO-395 PO; +SPIR25TA PO
[2021-01-15 09:07] LABS: ALANINE AMINOTRANSFERASE 14 U/L (12-78); ALBUMIN 2.4 G/DL (3.4-5.0); ALBUMIN/GLOBULIN RATIO 0.4 (1.1-1.5); ALKALINE PHOSPHATASE 205 IU/L (46-116); ANION GAP 9 (8-16); ASPARTATE AMINO TRANSFERASE 21 U/L (10-37); BILIRUBIN,TOTAL 0.6 MG/DL (0.1-1.0); BLOOD UREA NITROGEN 16 MG/DL (7-18); BUN/CREATININE RATIO 15.2 (5.4-32.0); CALCIUM 8.6 MG/DL (8.5-10.1); CHLORIDE 97 MMOL/L (99-107); CREATININE 1.05 MG/DL (0.60-1.10); GLUCOSE 307 MG/DL (70-104); LIPASE < 50 U/L (73-393); POTASSIUM 4.1 MMOL/L (3.5-5.1); SODIUM 132 MMOL/L (135-145); TOTAL CARBON DIOXIDE 25.8 MMOL/L (24-32); eGFR 77 ML/MIN
[2021-01-15 09:09] LABS: CLARITY,URINE CLEAR (Clear); COLOR,URINE YELLOW (Yellow); GLUCOSE, URINE 500 mg/dl (Neg); KETONES,URINE NEGATIVE (Neg); LEUKOCYTE ESTERASE ,URINE NEGATIVE (Neg); NITRITES, URINE NEGATIVE (Neg); OCCULT BLOOD,URINE TRACE-INTACT (Neg); PROTEIN,URINE >=300 mg/dl (Neg)
[2021-01-15 09:10] LABS: BASOPHILS # (AUTO) 0.1 X10'3 (0-0.2); BASOPHILS % (AUTO) 0.8 % (0-1); EOSINOPHILS # (AUTO) 0.1 X10'3 (0-0.9); EOSINOPHILS % (AUTO) 1.7 % (0-6); HEMATOCRIT 48.7 % (42.0-52.0); HEMOGLOBIN 16.1 g/dl (14.0-17.9); LYMPHOCYTES # (AUTO) 1.4 X10'3 (1.1-4.8); LYMPHOCYTES % (AUTO) 19.2 % (21-51); MEAN CORPUSCULAR HEMOGLOBIN 26.7 PG (27.0-31.0); MONOCYTES # (AUTO) 0.9 X10'3 (0-0.9); MONOCYTES % (AUTO) 11.9 % (2-12); NEUTROPHILS # (AUTO) 4.8 X10'3 (1.8-7.7); NEUTROPHILS % (AUTO) 66.4 % (42-75); PLATELET COUNT 564 X10'3 (140-440); RED BLOOD COUNT 6.01 X10'6 (4.70-6.10); RED CELL DISTRIBUTION WIDTH 14.7 % (11.5-14.5); WHITE BLOOD COUNT 7.3 X10'3 (4.5-11.0)
[2021-01-15 09:13] LABS: UA COLLECTION TYPE CLN CATCH MIDSTREAM
[2021-01-15 09:14] LABS: BACTERIA,URINE NONE SEEN /HPF (Neg); MUCUS STRANDS NONE SEEN /LPF (Neg); RBC,URINE 0-2 /HPF (0-2); SQUAMOUS EPITHELIAL CELL,UR FEW /LPF (FEW); WBC,URINE 0-4 /HPF (0-4)
[2021-01-15 09:15] LABS: HYALINE CASTS 0-3 /LPF (NEGATIVE)
[2021-01-15] MEDS ORDERED: normal saline 1000ml 1,000 ML IV ONE (10:25)
[2021-01-15] MEDS ORDERED: mag hydrox/Alum hydrox/simeth 30ml oral suspension PO ONE (10:30)
[2021-01-15] MEDS ORDERED: pantoprazole 40 MG vial IV ONE (10:30)
[2021-01-15] MEDS ORDERED: LIDOcaine Viscous 15ml cup MM ONE (10:30)
[2021-01-15] MEDS ORDERED: ondansetron/PF 4mg/2ml inj IV ONE (10:30)
[2021-01-15] MEDS ORDERED: insulin regular, human 10 units/0.1 ml syringe IV ONE (10:40)
[2021-01-15 11:07] LABS: TROPONIN I < 0.04 NG/ML (0.0-0.05)
[2021-01-15] MEDS ORDERED: carVEDilol 3.125mg tablet PO SCH (11:50)
[2021-01-15 12:30] LABS: URINE AMPHETAMINE SCREEN NEGATIVE (Neg); URINE BARBITUATE SCREEN NEGATIVE (Neg); URINE BENZODIAZEPINES SCREEN NEGATIVE (Neg); URINE CANNABINOID SCREEN NEGATIVE (Neg); URINE COCAINE SCREEN NEGATIVE (Neg); URINE METHADONE SCREEN NEGATIVE (Neg); URINE OPIATE SCREEN POSITIVE (Neg); URINE PHENCYCLIDINE SCREEN NEGATIVE (Neg)
[2021-01-15] MEDS ORDERED: ONDA4TAB6 PO (12:34)
[2021-01-15 13:16] VITALS: BP 126/83
== END 2021-01-15 13:18 | disposition home or self-care (01) ==
LOC: ER 07:22
DX: R11.2 Nausea with vomiting, unspecified (principal); R60.9 Edema, unspecified; R10.13 Epigastric pain; R06.02 Shortness of breath; I10 Essential (primary) hypertension; E11.9 Type 2 diabetes mellitus without complications; Z98.890 Other specified postprocedural states; Z79.82 Long term (current) use of aspirin; Z79.899 Other long term (current) drug therapy
CPT/HCPCS: 36415; 71045; 80053; 80305; 81001; 82948; 83690; 83880; 84484; 85025; 93005; 96374; 96375; 99285; C9113; J1815; J2405; J7030

== ENCOUNTER 2021-01-30 16:11 | Inpatient (IN) | payer MEDICAID, OTHER ==
[~2021-01-30] VITALS: Ht 175.3 cm; Wt 114.9 kg
[~2021-01-30 16:11] MED LIST changes: +ONDA4TAB6 PO
[2021-01-30 17:34] LABS: BASOPHILS % (AUTO) 0.2 % (0-1); EOSINOPHILS % (AUTO) 0 % (0-6); HEMATOCRIT 48.4 % (42.0-52.0); LYMPHOCYTES # (AUTO) 0.9 X10'3 (1.1-4.8); LYMPHOCYTES % (AUTO) 4.4 % (21-51); MEAN CORPUSCULAR HGB CONC 33.2 g/dL (33.0-36.5); MEAN CORPUSCULAR VOLUME 81.4 FL (78-98); MEAN PLATELET VOLUME 7.8 FL (7.4-10.4); MONOCYTES # (AUTO) 1.2 X10'3 (0-0.9); MONOCYTES % (AUTO) 5.6 % (2-12); NEUTROPHILS % (AUTO) 89.8 % (42-75); PLATELET COUNT 343 X10'3 (140-440); RED BLOOD COUNT 5.94 X10'6 (4.70-6.10); RED CELL DISTRIBUTION WIDTH 15.2 % (11.5-14.5); WHITE BLOOD COUNT 21.2 X10'3 (4.5-11.0)
[2021-01-30 17:52] LABS: TOTAL CELLS COUNTED 100
[2021-01-30 17:55] LABS: LARGE PLATELETS FEW; PLATELET ESTIMATE NORMAL; STOMATOCYTES FEW
--- NOTE | 2021-01-30 18:26 | NUR ---
Spoke to DANDY Rollins over patient leaving his life vest at home. Gave brief medical history of patient. Dr. Jackson occupied with a critical care patient. Gave full report to AISSATOU Willard at shift change. Pt stable on 5 lead monitor. EKG taken.
[2021-01-30 18:43] LABS: ALANINE AMINOTRANSFERASE 6 U/L (12-78); ALKALINE PHOSPHATASE 136 IU/L (46-116); ANION GAP 12 (8-16); ASPARTATE AMINO TRANSFERASE 8 U/L (10-37); BILIRUBIN,TOTAL 1.3 MG/DL (0.1-1.0); BLOOD UREA NITROGEN 28 MG/DL (7-18); BUN/CREATININE RATIO 16.2 (5.4-32.0); CALCIUM 8.5 MG/DL (8.5-10.1); CHLORIDE 89 MMOL/L (99-107); CREATININE 1.73 MG/DL (0.60-1.10); POTASSIUM 4.7 MMOL/L (3.5-5.1); SODIUM 122 MMOL/L (135-145); TOTAL CARBON DIOXIDE 21.1 MMOL/L (24-32); TOTAL PROTEIN 8.4 G/DL (6.4-8.2); eGFR 43 ML/MIN
[2021-01-30 18:44] LABS: ALBUMIN/GLOBULIN RATIO 0.3 (1.1-1.5)
--- NOTE | 2021-01-30 18:49 | NUR ---
Assumed care of patient.
[2021-01-30 18:50] LABS: GLUCOSE 465 MG/DL (70-104)
[2021-01-30] MEDS ORDERED: IBUP-2841 PO (19:28)
[2021-01-30] MEDS ORDERED: vancomycin/NS 1 GM ADD-VANTAGE 250 ML IV ONE (20:30)
[2021-01-30] MEDS ORDERED: CefTRIAXone 2gm/D5W 50ml BAG 50 ML IV ONE (20:30)
[2021-01-30] MEDS ORDERED: aspirin 325mg tablet PO ONE (20:35)
[2021-01-30] MEDS ORDERED: PERFLUTREN PROTEIN-A MICROSPHR (Optison) 0.22 MG/ML 3ML VIAL IV PRN (20:50)
[2021-01-30] MEDS ORDERED: potassium Cl 40MEQ/1/2NS 520ml 520 ML IV PRN ×2 (20:50)
[2021-01-30] MEDS ORDERED: potassium Cl 20 mEq SR tablet PO PRN ×2 (20:50)
[2021-01-30] MEDS ORDERED: normal saline 1000ml 1,000 ML IV SCH (20:50)
[2021-01-30] MEDS ORDERED: ondansetron/PF 4mg/2ml inj IV PRN (20:50)
[2021-01-30] MEDS ORDERED: magnesium hydroxide 30ml (MOM) UD suspension PO PRN (20:50)
[2021-01-30] MEDS ORDERED: acetaminophen 325mg tablet PO PRN (20:50)
[2021-01-30] MEDS ORDERED: mag hydrox/Alum hydrox/simeth 30ml oral suspension PO PRN (20:50)
[2021-01-30] MEDS ORDERED: dextrose 50%-water 50ml dispensing syringe IV PRN ×2 (20:55)
[2021-01-30] MEDS ORDERED: glucagon, human recombinant 1mg kit SUBCUT PRN (20:55)
[2021-01-30] MEDS ORDERED: dextrose ORAL solution 15 GM/59 ML bottle PO PRN ×2 (20:55)
[2021-01-30] MEDS ORDERED: MESSAGE TO PHARMACY PO ONE (20:55)
[2021-01-30 23:00] VITALS: BP 99/63
[2021-01-30] MEDS ORDERED: insulin glargine (Lantus) pen - multi-dose SQ ONE (23:15)
[2021-01-30] MEDS: insulin Lispro (HumaLOG) vial - multi-dose SQ SCH (23:34)
[2021-01-31 02:00] VITALS: BP 107/70
--- NOTE | 2021-01-31 06:38 | NUR ---
Problems reprioritized. Patient report given, questions answered & plan of care reviewed with Zuleyka REYEZ. Addendum: 01/31/21 at 0639 by Yue Silva RN Amended: Links added.
--- NOTE | 2021-01-31 06:45 | NUR ---
Patient in room PCU 3024A. I have received report from AISSATOU LOERA and had the opportunity to ask questions and assume patient care.
[2021-01-31 07:00] VITALS: BP 136/79
[2021-01-31 07:33] LABS: BASOPHILS % (AUTO) 0.2 % (0-1); EOSINOPHILS # (AUTO) 0.1 X10'3 (0-0.9); EOSINOPHILS % (AUTO) 0.5 % (0-6); HEMATOCRIT 47.9 % (42.0-52.0); HEMOGLOBIN 15.9 g/dl (14.0-17.9); LYMPHOCYTES # (AUTO) 0.8 X10'3 (1.1-4.8); LYMPHOCYTES % (AUTO) 5.3 % (21-51); MEAN CORPUSCULAR HGB CONC 33.2 g/dL (33.0-36.5); MEAN CORPUSCULAR VOLUME 81.2 FL (78-98); MEAN PLATELET VOLUME 7.9 FL (7.4-10.4); MONOCYTES # (AUTO) 1.2 X10'3 (0-0.9); MONOCYTES % (AUTO) 7.4 % (2-12); NEUTROPHILS # (AUTO) 13.8 X10'3 (1.8-7.7); NEUTROPHILS % (AUTO) 86.6 % (42-75); PLATELET COUNT 316 X10'3 (140-440); RED CELL DISTRIBUTION WIDTH 15.2 % (11.5-14.5); WHITE BLOOD COUNT 15.9 X10'3 (4.5-11.0)
[2021-01-31 07:56] LABS: ALANINE AMINOTRANSFERASE 9 U/L (12-78); ALBUMIN 1.8 G/DL (3.4-5.0); ALBUMIN/GLOBULIN RATIO 0.3 (1.1-1.5); ALKALINE PHOSPHATASE 125 IU/L (46-116); ANION GAP 10 (8-16); ASPARTATE AMINO TRANSFERASE 8 U/L (10-37); BILIRUBIN,TOTAL 0.7 MG/DL (0.1-1.0); BLOOD UREA NITROGEN 30 MG/DL (7-18); BUN/CREATININE RATIO 23.6 (5.4-32.0); CALCIUM 8.7 MG/DL (8.5-10.1); CHLORIDE 96 MMOL/L (99-107); CREATININE 1.27 MG/DL (0.60-1.10); GLUCOSE 319 MG/DL (70-104); POTASSIUM 3.8 MMOL/L (3.5-5.1); SODIUM 130 MMOL/L (135-145); TOTAL CARBON DIOXIDE 24.1 MMOL/L (24-32); TOTAL PROTEIN 8.2 G/DL (6.4-8.2); eGFR 62 ML/MIN
[2021-01-31] MEDS: apixaban 5mg tablet PO SCH ×2 (08:00→19:54)
[2021-01-31] MEDS ORDERED: furosemide 40mg tablet PO SCH (08:00)
[2021-01-31] MEDS: K and/or MAG REPLACEMENT MC SCH ×2 (08:00→20:00)
[2021-01-31] MEDS: vancomycin/NS 1 GM ADD-VANTAGE 250 ML IV SCH ×2 (10:16→19:56)
[2021-01-31] MEDS: furosemide 40mg/4ml inj IV SCH ×2 (10:16→19:54)
[2021-01-31] MEDS: aspirin 81mg tablet.DR PO SCH (10:17)
[2021-01-31] MEDS: spironolactone 25 MG tablet PO SCH (10:17)
[2021-01-31] MEDS: metoprolol succinate 25mg (24-HOUR) SR. Tablet PO SCH (10:18)
[2021-01-31] MEDS: insulin Lispro (HumaLOG) vial - multi-dose SQ SCH ×3 (10:33→19:36)
[2021-01-31 11:00] VITALS: BP 119/75
[2021-01-31 15:00] VITALS: BP 108/68
--- NOTE | 2021-01-31 15:07 | NUR ---
DM consult: Pt with A1c greater than 14%. Multiple attempted visits with pt at bedside however pt unavailable. Pt recently admitted and seen by RD 01/07 for written and verbal DM education with an A1c of 12.8%. RD contact information provided at that time. Per H&P this admit pt states he has not taken insulin for 2-3 days because he left it in his truck where it is likely unusable and has not been checking his blood sugars because his glucometer doesn't have any batteries. implementation services analyst has been consulted. Will continue to follow. Addendum: 01/31/21 at [address] Amended: Links added.
[2021-01-31 18:00] VITALS: BP 116/67
--- NOTE | 2021-01-31 18:01 | NUR ---
PATIENT HAS A LIFE VEST THAT HE NEEDS TO WEAR BUT IS NOT COMPLIANT WITH WEARING. CURRENTLY NOT WEARING THE LIFE VEST IS IN HIS CAR. PATIENT HAS BEEN EDUCATED HE NEEDS TO WEAR IT AT ALL TIMES EVEN WHILE IN THE HOSPITAL.
--- NOTE | 2021-01-31 18:54 | NUR ---
Problems reprioritized. Patient report given, questions answered & plan of care reviewed with STEVEN RN.
[2021-01-31 19:21] LABS: CLARITY,URINE CLEAR (Clear); GLUCOSE, URINE 500 mg/dl (Neg); KETONES,URINE NEGATIVE (Neg); LEUKOCYTE ESTERASE ,URINE NEGATIVE (Neg); NITRITES, URINE NEGATIVE (Neg); OCCULT BLOOD,URINE TRACE-INTACT (Neg); PROTEIN,URINE >=300 mg/dl (Neg)
[2021-01-31 19:26] LABS: COLOR,URINE DARK YELLOW (Yellow); UA COLLECTION TYPE CLN CATCH MIDSTREAM
[2021-01-31 19:29] LABS: COARSE GRANULAR CAST 0-3 /LPF (NEGATIVE); HYALINE CASTS 0-3 /LPF (NEGATIVE)
[2021-01-31 19:30] LABS: AMORPHOUS URATES 1+; BACTERIA,URINE NONE SEEN /HPF (Neg); MUCUS STRANDS FEW /LPF (Neg); RBC,URINE 0-2 /HPF (0-2); SQUAMOUS EPITHELIAL CELL,UR FEW /LPF (FEW)
[2021-01-31 19:31] LABS: WBC,URINE 0-4 /HPF (0-4)
[2021-01-31 19:33] LABS: URINE AMPHETAMINE SCREEN NEGATIVE (Neg); URINE BARBITUATE SCREEN NEGATIVE (Neg); URINE BENZODIAZEPINES SCREEN NEGATIVE (Neg); URINE CANNABINOID SCREEN NEGATIVE (Neg); URINE COCAINE SCREEN NEGATIVE (Neg); URINE METHADONE SCREEN NEGATIVE (Neg); URINE OPIATE SCREEN NEGATIVE (Neg); URINE PHENCYCLIDINE SCREEN NEGATIVE (Neg)
[2021-01-31] MEDS ORDERED: CefTRIAXone/D5W-Rocephin 1gm 50 ML IV SCH (21:00)
[2021-01-31] MEDS ORDERED: insulin glargine (Lantus) pen - multi-dose SQ SCH (21:00)
[2021-01-31 22:00] VITALS: BP 102/58
[2021-02-01 02:00] VITALS: BP 98/65
--- NOTE | 2021-02-01 06:00 | NUR ---
Pt has Fingot @ bedside charging & states he will put on when it is done charging
[2021-02-01 06:30] VITALS: BP 104/70
--- NOTE | 2021-02-01 07:00 | NUR ---
Patient in room PCU 3015. I have received report from AISSATOU Grubbs and had the opportunity to ask questions and assume patient care.
[2021-02-01] MEDS ORDERED: VANCOMYCIN LEVEL IV ONE (07:30)
[2021-02-01 08:12] LABS: BASOPHILS % (AUTO) 0.4 % (0-1); EOSINOPHILS # (AUTO) 0.2 X10'3 (0-0.9); EOSINOPHILS % (AUTO) 2.3 % (0-6); HEMATOCRIT 47.9 % (42.0-52.0); HEMOGLOBIN 15.6 g/dl (14.0-17.9); LYMPHOCYTES # (AUTO) 1.3 X10'3 (1.1-4.8); LYMPHOCYTES % (AUTO) 16.3 % (21-51); MEAN CORPUSCULAR HEMOGLOBIN 26.6 PG (27.0-31.0); MEAN CORPUSCULAR HGB CONC 32.6 g/dL (33.0-36.5); MEAN CORPUSCULAR VOLUME 81.5 FL (78-98); MEAN PLATELET VOLUME 8.1 FL (7.4-10.4); MONOCYTES # (AUTO) 0.6 X10'3 (0-0.9); MONOCYTES % (AUTO) 6.8 % (2-12); NEUTROPHILS % (AUTO) 74.2 % (42-75); PLATELET COUNT 353 X10'3 (140-440); RED BLOOD COUNT 5.88 X10'6 (4.70-6.10); RED CELL DISTRIBUTION WIDTH 15.3 % (11.5-14.5); WHITE BLOOD COUNT 8.1 X10'3 (4.5-11.0)
[2021-02-01] MEDS: insulin Lispro (HumaLOG) vial - multi-dose SQ SCH (08:13)
[2021-02-01 08:34] LABS: ALANINE AMINOTRANSFERASE 10 U/L (12-78); ALBUMIN 1.7 G/DL (3.4-5.0); ALBUMIN/GLOBULIN RATIO 0.3 (1.1-1.5); ALKALINE PHOSPHATASE 109 IU/L (46-116); ANION GAP 10 (8-16); ASPARTATE AMINO TRANSFERASE 11 U/L (10-37); BILIRUBIN,TOTAL 0.4 MG/DL (0.1-1.0); BLOOD UREA NITROGEN 39 MG/DL (7-18); BUN/CREATININE RATIO 31.5 (5.4-32.0); CALCIUM 8.5 MG/DL (8.5-10.1); CHLORIDE 99 MMOL/L (99-107); CREATININE 1.24 MG/DL (0.60-1.10); GLUCOSE 126 MG/DL (70-104); POTASSIUM 3.4 MMOL/L (3.5-5.1); SODIUM 135 MMOL/L (135-145); TOTAL CARBON DIOXIDE 25.7 MMOL/L (24-32); TOTAL PROTEIN 7.6 G/DL (6.4-8.2); eGFR 64 ML/MIN
[2021-02-01 08:35] LABS: VANCOMYCIN,TROUGH 14.6 UG/ML (6.0-14.0)
[2021-02-01] MEDS: K and/or MAG REPLACEMENT MC SCH (08:50)
[2021-02-01] MEDS: aspirin 81mg tablet.DR PO SCH (09:56)
[2021-02-01] MEDS: vancomycin/NS 1 GM ADD-VANTAGE 250 ML IV SCH (09:56)
[2021-02-01 09:57] VITALS: BP_SYST 118
[2021-02-01] MEDS: furosemide 40mg/4ml inj IV SCH (09:57)
[2021-02-01] MEDS: metoprolol succinate 25mg (24-HOUR) SR. Tablet PO SCH (09:57)
[2021-02-01] MEDS: spironolactone 25 MG tablet PO SCH (09:57)
[2021-02-01] MEDS: apixaban 5mg tablet PO SCH (09:57)
--- NOTE | 2021-02-01 11:00 | NUR ---
Problems reprioritized. Patient report given, questions answered & plan of care reviewed with AISSATOU Polanco.
--- NOTE | 2021-02-01 11:00 | NUR ---
Patient in room PCU 3015. I have received report from Arin REYEZ and had the opportunity to ask questions and assume patient care.
[2021-02-01] MEDS ORDERED: INSU100I45 SQ (11:08)
[2021-02-01] MEDS ORDERED: INSU100I31 SQ (11:08)
--- NOTE | 2021-02-01 11:27 | NUR ---
CHF FOLLOW UP Patient has follow up appointment scheduled on February 05, 2021.
--- NOTE | 2021-02-01 11:58 | NUR ---
Patient discharged home in stable condition. IV removed, cannula intact. Tele discontinued and returned to telephone information supervisor. All discharge instructions reviewed with no further questions. Medications called in to [facility] on [facility]. Patient wearing life vest and had home medications from pharmacy on person. Patient taken via wheelchair to personal vehicle with all belongings on person. Patient stated he will follow up with [facility] in one week and will follow up with his counter maker on February 05.
[2021-02-01] MEDS ORDERED: VANCOmycin 1250MG/NS 250ml Bag 250 ML IV SCH (22:00)
[2021-02-03] MEDS ORDERED: VANCOMYCIN LEVEL IV ONE (09:30)
== END 2021-02-01 11:55 | disposition home or self-care (01) | DRG 420 ==
LOC: ER 16:12 → ED HOLD 20:49 → PCU 3S 22:36
PROVIDERS: ADMIT Internal Medicine; ATTEND Family Medicine
DX: E11.65 Type 2 diabetes mellitus with hyperglycemia (principal); E11.22 Type 2 diabetes mellitus with diabetic chronic kidney disease; I42.7 Cardiomyopathy due to drug and external agent; I50.9 Heart failure, unspecified; I13.0 Hypertensive heart and chronic kidney disease with heart failure and stage 1 through stage 4 chronic kidney disease, or unspecified chronic kidney disease; E87.1 Hypo-osmolality and hyponatremia; D72.825 Bandemia; F15.90 Other stimulant use, unspecified, uncomplicated; E87.6 Hypokalemia; N18.9 Chronic kidney disease, unspecified; T43.625A Adverse effect of amphetamines, initial encounter; J44.9 Chronic obstructive pulmonary disease, unspecified; M54.9 Dorsalgia, unspecified; Z79.899 Other long term (current) drug therapy; Z79.4 Long term (current) use of insulin; Z79.82 Long term (current) use of aspirin; Z91.19 Patient's noncompliance with other medical treatment and regimen
CPT/HCPCS: 36415; 71045; 80053; 80202; 80305; 81001; 82948; 83036; 83605; 83880; 84145; 84484; 85007; 85025; 87040; 87081; 93005; 93308; 99285; G0378; J0696; J1815; J1940; J2405; J3370; J7030

== ENCOUNTER 2021-05-03 13:55 | Inpatient (IN) | payer MEDICAID ==
[~2021-05-03] VITALS: Ht 175.3 cm; Wt 130.0 kg
[2021-05-03 11:30] VITALS: BP 130/71
[~2021-05-03 13:55] MED LIST changes: -APIX5TAB3 PO; -INSU100C10 SQ; +INSU100I31 SQ; +INSU100I45 SQ; -INSU100V9 SQ; -LISI30TA39 PO; -ONDA4TAB6 PO
[2021-05-03 15:05] LABS: BASOPHILS # (AUTO) 0.1 X10'3 (0-0.2); BASOPHILS % (AUTO) 0.4 % (0-1); EOSINOPHILS % (AUTO) 0 % (0-6); HEMATOCRIT 48.7 % (42.0-52.0); HEMOGLOBIN 16.9 g/dl (14.0-17.9); LYMPHOCYTES # (AUTO) 0.5 X10'3 (1.1-4.8); LYMPHOCYTES % (AUTO) 2.7 % (21-51); MEAN CORPUSCULAR HEMOGLOBIN 28.4 PG (27.0-31.0); MEAN CORPUSCULAR HGB CONC 34.6 g/dL (33.0-36.5); MEAN CORPUSCULAR VOLUME 82.1 FL (78-98); MEAN PLATELET VOLUME 7.5 FL (7.4-10.4); MONOCYTES # (AUTO) 0.9 X10'3 (0-0.9); MONOCYTES % (AUTO) 5.1 % (2-12); NEUTROPHILS # (AUTO) 16.5 X10'3 (1.8-7.7); NEUTROPHILS % (AUTO) 91.8 % (42-75); PLATELET COUNT 346 X10'3 (140-440); RED BLOOD COUNT 5.94 X10'6 (4.70-6.10); RED CELL DISTRIBUTION WIDTH 15.1 % (11.5-14.5)
[2021-05-03 15:22] LABS: ALANINE AMINOTRANSFERASE 15 U/L (12-78); ALBUMIN/GLOBULIN RATIO 0.4 (1.1-1.5); ALKALINE PHOSPHATASE 145 IU/L (46-116); ANION GAP 12 (8-16); ASPARTATE AMINO TRANSFERASE 19 U/L (10-37); BILIRUBIN,TOTAL 0.9 MG/DL (0.1-1.0); BLOOD UREA NITROGEN 23 MG/DL (7-18); BUN/CREATININE RATIO 13.8 (5.4-32.0); CALCIUM 9.5 MG/DL (8.5-10.1); CHLORIDE 90 MMOL/L (99-107); CREATININE 1.67 MG/DL (0.60-1.10); GLUCOSE 287 MG/DL (70-104); SODIUM 126 MMOL/L (135-145); TOTAL PROTEIN 9.7 G/DL (6.4-8.2); eGFR 45 ML/MIN
[2021-05-03 15:40] LABS: ETHANOL < 0.010 GM/DL (0.0-0.010)
[2021-05-03] MEDS ORDERED: HYDROcodone/acetaminophen 10/325mg tab PO ONE (15:40)
[2021-05-03 15:55] LABS: C-REACTIVE PROTEIN 29.86 MG/DL (0.0-0.5)
--- NOTE | 2021-05-03 15:59 | NUR ---
DR ANDERSON MADE AWARE OF WBC/HR. WILL NOT DO SEPSIS BOLUS DUE TO CARDIAC FX, WILL GIVE 500 ML NS
[2021-05-03] MEDS ORDERED: piperacillin/tazo 3.375gm/50ml 50 ML IV SCH (16:00)
[2021-05-03] MEDS ORDERED: normal saline 500ml IV soln 500 ML IV ONE (16:00)
[2021-05-03] MEDS ORDERED: METO-384 PO (16:24)
[2021-05-03] MEDS ORDERED: LISI-790 PO (16:24)
[2021-05-03] MEDS ORDERED: INSU100I31 SQ (16:24)
[2021-05-03] MEDS ORDERED: INSU100V43 SQ (16:24)
[2021-05-03] MEDS ORDERED: SPIR25TA5 PO (16:24)
[2021-05-03] MEDS ORDERED: ASPI-1144 PO (16:24)
[2021-05-03] MEDS ORDERED: PRAV40TA3 PO (16:24)
[2021-05-03] MEDS ORDERED: magnesium hydroxide 30ml (MOM) UD suspension PO PRN (16:25)
[2021-05-03] MEDS ORDERED: morphine 2 MG/ML inj. syringe IV PRN (16:25)
[2021-05-03] MEDS ORDERED: ondansetron/PF 4mg/2ml inj IV PRN (16:25)
[2021-05-03] MEDS ORDERED: mag hydrox/Alum hydrox/simeth 30ml oral suspension PO PRN (16:25)
--- NOTE | 2021-05-03 17:29 | NUR ---
DR GARZA AT BEDSIDE, AWARE OF BP, DIAPHORESIS. NO NEW ORDERS
[2021-05-03] MEDS: normal saline 1000ml 1,000 ML IV SCH (17:30)
[2021-05-03] MEDS: vancomycin/NS 1 GM ADD-VANTAGE 250 ML IV SCH (17:30)
[2021-05-03 19:30] VITALS: BP 114/67
--- NOTE | 2021-05-03 19:30 | NUR ---
Patient arrived to the floor via wheel chair accompanied by PCT. Placed in 344B. Patient awake and alert on room air, in no apparent distress. Call light and items of frequent use within reach. Will continue to monitor.
[2021-05-03] MEDS: spironolactone 25 MG tablet PO SCH (19:36)
[2021-05-03] MEDS: docusate sod 100mg capsule PO SCH (19:37)
[2021-05-03 23:00] LABS: URINE AMPHETAMINE SCREEN POSITIVE (Neg); URINE BARBITUATE SCREEN NEGATIVE (Neg); URINE BENZODIAZEPINES SCREEN NEGATIVE (Neg); URINE CANNABINOID SCREEN NEGATIVE (Neg); URINE COCAINE SCREEN NEGATIVE (Neg); URINE METHADONE SCREEN NEGATIVE (Neg); URINE OPIATE SCREEN POSITIVE (Neg); URINE PHENCYCLIDINE SCREEN NEGATIVE (Neg)
[2021-05-03 23:30] VITALS: BP 130/71
[2021-05-03] MEDS: acetaminophen 325mg tablet PO PRN (23:59)
[2021-05-04] MEDS: vancomycin/NS 1 GM ADD-VANTAGE 250 ML IV SCH (05:22)
--- NOTE | 2021-05-04 06:18 | NUR ---
Problems reprioritized. Patient report given, questions answered & plan of care reviewed with AISSATOU Mejía.
--- NOTE | 2021-05-04 06:31 | NUR ---
Student documentation: I have reviewed and agree with all interventions, assessments performed and documented by Sergio Student Nurse.
[2021-05-04] MEDS: normal saline 1000ml 1,000 ML IV SCH (06:43)
[2021-05-04 07:30] LABS: BASOPHILS % (AUTO) 0.3 % (0-1); EOSINOPHILS % (AUTO) 0.1 % (0-6); HEMATOCRIT 42.8 % (42.0-52.0); HEMOGLOBIN 14.8 g/dl (14.0-17.9); LYMPHOCYTES # (AUTO) 0.6 X10'3 (1.1-4.8); MEAN CORPUSCULAR HEMOGLOBIN 28.5 PG (27.0-31.0); MEAN CORPUSCULAR HGB CONC 34.7 g/dL (33.0-36.5); MEAN CORPUSCULAR VOLUME 82.1 FL (78-98); MEAN PLATELET VOLUME 7.6 FL (7.4-10.4); MONOCYTES # (AUTO) 1.4 X10'3 (0-0.9); MONOCYTES % (AUTO) 10.9 % (2-12); NEUTROPHILS # (AUTO) 10.6 X10'3 (1.8-7.7); NEUTROPHILS % (AUTO) 83.7 % (42-75); PLATELET COUNT 284 X10'3 (140-440); RED BLOOD COUNT 5.21 X10'6 (4.70-6.10); RED CELL DISTRIBUTION WIDTH 14.8 % (11.5-14.5); WHITE BLOOD COUNT 12.6 X10'3 (4.5-11.0)
[2021-05-04 07:45] LABS: ALANINE AMINOTRANSFERASE 20 U/L (12-78); ALBUMIN 2.3 G/DL (3.4-5.0); ALBUMIN/GLOBULIN RATIO 0.4 (1.1-1.5); ALKALINE PHOSPHATASE 139 IU/L (46-116); ANION GAP 10 (8-16); ASPARTATE AMINO TRANSFERASE 26 U/L (10-37); BILIRUBIN,TOTAL 0.6 MG/DL (0.1-1.0); BLOOD UREA NITROGEN 20 MG/DL (7-18); BUN/CREATININE RATIO 16.3 (5.4-32.0); CALCIUM 8.5 MG/DL (8.5-10.1); CHLORIDE 94 MMOL/L (99-107); CREATININE 1.23 MG/DL (0.60-1.10); GLUCOSE 221 MG/DL (70-104); POTASSIUM 3.7 MMOL/L (3.5-5.1); SODIUM 129 MMOL/L (135-145); TOTAL CARBON DIOXIDE 25.2 MMOL/L (24-32); TOTAL PROTEIN 8.2 G/DL (6.4-8.2); eGFR 64 ML/MIN
[2021-05-04 08:00] VITALS: BP 130/77
[2021-05-04] MEDS ORDERED: cefepime 1GM/NS ADD-VANTAGE 100 ML IV SCH (08:10)
[2021-05-04] MEDS: aspirin 81mg tab.chew PO SCH (09:15)
[2021-05-04] MEDS: metoprolol succinate 25mg (24-HOUR) SR. Tablet PO SCH (09:16)
[2021-05-04] MEDS: lisinopril 5mg tablet PO SCH (09:16)
[2021-05-04] MEDS: spironolactone 25 MG tablet PO SCH ×2 (09:17→19:19)
[2021-05-04] MEDS: atorvastatin 10mg tablet PO SCH (09:17)
[2021-05-04] MEDS: docusate sod 100mg capsule PO SCH ×2 (09:17→19:13)
[2021-05-04] MEDS: enoxaparin 40mg/0.4ml syringe SUBCUT SCH (09:19)
[2021-05-04] MEDS: HYDROcodone/acetaminophen 5mg/325mg tablet PO PRN ×2 (09:24→17:49)
[2021-05-04] MEDS: insulin glargine (Lantus) pen - multi-dose SQ SCH (09:28)
[2021-05-04] MEDS ORDERED: dextrose ORAL solution 15 GM/59 ML bottle PO PRN ×2 (10:40)
[2021-05-04] MEDS ORDERED: glucagon, human recombinant 1mg kit SUBCUT PRN (10:40)
[2021-05-04] MEDS ORDERED: MESSAGE TO PHARMACY PO ONE (10:40)
[2021-05-04] MEDS ORDERED: dextrose 50%-water 50ml dispensing syringe IV PRN ×2 (10:40)
--- NOTE | 2021-05-04 11:09 | NUR ---
Diabetes consult: A1c 10.5 Pt states he has been diabetic for years and has received information before about managing diabetes. Pt declined verbal education though accepted written education w/ RD contact info. Will continue to monitor. Addendum: 05/04/21 at [address] Amended: Links added.
[2021-05-04 11:36] VITALS: BP 112/60
--- NOTE | 2021-05-04 15:24 | NUR ---
Insulin was unavailable to treat patient at lunch. And by the time I received it, it was to late to treat. Will pass on to night RN.
[2021-05-04] MEDS: cefepime 1GM in D5W 50mL 50 ML IV SCH (16:11)
[2021-05-04] MEDS: VANCOmycin 1250MG/NS 250ml Bag 250 ML IV SCH (17:14)
[2021-05-04 18:00] VITALS: BP 99/68
--- NOTE | 2021-05-04 18:15 | NUR ---
Patient in room ZAINAB 344B. I have received report from AISSATOU Mejía and had the opportunity to ask questions and assume patient care.
--- NOTE | 2021-05-04 18:16 | NUR ---
Problems reprioritized. Patient report given, questions answered & plan of care reviewed with Juli REYEZ.
[2021-05-04] MEDS: insulin Lispro (HumaLOG) vial - multi-dose SQ SCH (19:14)
[2021-05-04] MEDS: lactobacillus rhamnosus 10,000 MMU CELLS/CAPSULE PO SCH (19:14)
[2021-05-04] MEDS ORDERED: insulin glargine (Lantus) pen - multi-dose SQ SCH (21:00)
[2021-05-04] MEDS: acetaminophen 325mg tablet PO PRN (22:24)
[2021-05-05] VITALS: BP 121/79
[2021-05-05] MEDS: cefepime 1GM in D5W 50mL 50 ML IV SCH ×4 (00:42→23:33)
[2021-05-05] MEDS: HYDROcodone/acetaminophen 5mg/325mg tablet PO PRN ×3 (02:38→19:33)
[2021-05-05] MEDS: VANCOmycin 1250MG/NS 250ml Bag 250 ML IV SCH ×2 (05:12→16:42)
--- NOTE | 2021-05-05 06:08 | NUR ---
Student documentation: I have reviewed and agree with all interventions, assessments performed and documented by Lopez Student Nurse.
--- NOTE | 2021-05-05 06:08 | NUR ---
Problems reprioritized. Patient report given, questions answered & plan of care reviewed with AISSATOU Mejía.
--- NOTE | 2021-05-05 06:17 | NUR ---
Problems reprioritized. Patient report given, questions answered & plan of care reviewed with AISSATOU Mejía.
[2021-05-05 06:19] LABS: BASOPHILS # (AUTO) 0.1 X10'3 (0-0.2); BASOPHILS % (AUTO) 0.4 % (0-1); EOSINOPHILS % (AUTO) 0.4 % (0-6); HEMATOCRIT 39.3 % (42.0-52.0); HEMOGLOBIN 13.8 g/dl (14.0-17.9); LYMPHOCYTES # (AUTO) 1.1 X10'3 (1.1-4.8); LYMPHOCYTES % (AUTO) 9.1 % (21-51); MEAN CORPUSCULAR HEMOGLOBIN 28.5 PG (27.0-31.0); MEAN CORPUSCULAR HGB CONC 35.2 g/dL (33.0-36.5); MEAN CORPUSCULAR VOLUME 81.1 FL (78-98); MEAN PLATELET VOLUME 7.8 FL (7.4-10.4); MONOCYTES # (AUTO) 1.6 X10'3 (0-0.9); NEUTROPHILS # (AUTO) 9.6 X10'3 (1.8-7.7); NEUTROPHILS % (AUTO) 77.1 % (42-75); PLATELET COUNT 282 X10'3 (140-440); RED BLOOD COUNT 4.84 X10'6 (4.70-6.10); RED CELL DISTRIBUTION WIDTH 14.9 % (11.5-14.5); WHITE BLOOD COUNT 12.4 X10'3 (4.5-11.0)
[2021-05-05 06:23] LABS: ALBUMIN 1.9 G/DL (3.4-5.0); ANION GAP 9 (8-16); BLOOD UREA NITROGEN 18 MG/DL (7-18); BUN/CREATININE RATIO 17.5 (5.4-32.0); CALCIUM 8.3 MG/DL (8.5-10.1); CHLORIDE 100 MMOL/L (99-107); CREATININE 1.03 MG/DL (0.60-1.10); GLUCOSE 214 MG/DL (70-104); POTASSIUM 3.6 MMOL/L (3.5-5.1); SODIUM 133 MMOL/L (135-145); eGFR 79 ML/MIN
--- NOTE | 2021-05-05 06:44 | NUR ---
Patient in room ZAINAB 344. I have received report from Juli REYEZ and had the opportunity to ask questions and assume patient care.
[2021-05-05 07:00] VITALS: BP 94/66
[2021-05-05] MEDS: spironolactone 25 MG tablet PO SCH ×2 (07:08→19:38)
[2021-05-05] MEDS: metoprolol succinate 25mg (24-HOUR) SR. Tablet PO SCH (07:08)
[2021-05-05] MEDS: lisinopril 5mg tablet PO SCH (07:09)
[2021-05-05] MEDS: docusate sod 100mg capsule PO SCH ×2 (07:10→19:28)
[2021-05-05] MEDS: aspirin 81mg tab.chew PO SCH (07:10)
[2021-05-05] MEDS: lactobacillus rhamnosus 10,000 MMU CELLS/CAPSULE PO SCH ×2 (07:10→19:28)
[2021-05-05] MEDS: atorvastatin 10mg tablet PO SCH (07:10)
[2021-05-05] MEDS: enoxaparin 40mg/0.4ml syringe SUBCUT SCH (07:11)
[2021-05-05] MEDS: insulin glargine (Lantus) pen - multi-dose SQ SCH (08:58)
[2021-05-05] MEDS: insulin Lispro (HumaLOG) vial - multi-dose SQ SCH ×3 (08:59→19:38)
[2021-05-05 11:00] VITALS: BP 109/64
--- NOTE | 2021-05-05 18:26 | NUR ---
Patient in room ZAINAB 344B. I have received report from AISSATOU Mejía and had the opportunity to ask questions and assume patient care. Pt in no apparent distress at this time.
[2021-05-05 20:00] VITALS: BP 113/66
[2021-05-06] VITALS: BP 108/66
[2021-05-06] MEDS ORDERED: VANCOMYCIN LEVEL IV ONE (04:30)
[2021-05-06] MEDS: HYDROcodone/acetaminophen 5mg/325mg tablet PO PRN ×2 (04:30→09:24)
[2021-05-06] MEDS: VANCOmycin 1250MG/NS 250ml Bag 250 ML IV SCH (04:42)
[2021-05-06 04:47] LABS: BASOPHILS % (AUTO) 0.3 % (0-1); EOSINOPHILS # (AUTO) 0.1 X10'3 (0-0.9); EOSINOPHILS % (AUTO) 0.5 % (0-6); HEMATOCRIT 41.6 % (42.0-52.0); LYMPHOCYTES # (AUTO) 1.2 X10'3 (1.1-4.8); LYMPHOCYTES % (AUTO) 9.8 % (21-51); MEAN CORPUSCULAR HEMOGLOBIN 27.7 PG (27.0-31.0); MEAN CORPUSCULAR HGB CONC 33.5 g/dL (33.0-36.5); MEAN CORPUSCULAR VOLUME 82.5 FL (78-98); MEAN PLATELET VOLUME 7.5 FL (7.4-10.4); MONOCYTES # (AUTO) 1.3 X10'3 (0-0.9); MONOCYTES % (AUTO) 10.5 % (2-12); NEUTROPHILS % (AUTO) 78.9 % (42-75); PLATELET COUNT 326 X10'3 (140-440); RED BLOOD COUNT 5.04 X10'6 (4.70-6.10); RED CELL DISTRIBUTION WIDTH 14.8 % (11.5-14.5); WHITE BLOOD COUNT 12.7 X10'3 (4.5-11.0)
[2021-05-06 04:55] LABS: ANION GAP 7 (8-16); BLOOD UREA NITROGEN 17 MG/DL (7-18); BUN/CREATININE RATIO 18.3 (5.4-32.0); CALCIUM 8.7 MG/DL (8.5-10.1); CHLORIDE 99 MMOL/L (99-107); CREATININE 0.93 MG/DL (0.60-1.10); GLUCOSE 148 MG/DL (70-104); POTASSIUM 3.2 MMOL/L (3.5-5.1); SODIUM 130 MMOL/L (135-145); TOTAL CARBON DIOXIDE 24.5 MMOL/L (24-32); VANCOMYCIN,TROUGH 11.1 UG/ML (6.0-14.0); eGFR 89 ML/MIN
[2021-05-06] MEDS ORDERED: magnesium 4gm in 100ml NS 100 ML IV PRN (05:50)
[2021-05-06] MEDS ORDERED: potassium Cl 40MEQ/1/2NS 520ml 520 ML IV PRN (05:50)
[2021-05-06] MEDS ORDERED: potassium Cl 20 mEq SR tablet PO PRN ×2 (05:50)
[2021-05-06] MEDS ORDERED: magnesium Cl slow-release 64mg tablet PO PRN (05:50)
--- NOTE | 2021-05-06 06:18 | NUR ---
Patient in room ZAINAB 344. I have received report from Gisell REYEZ and had the opportunity to ask questions and assume patient care.
--- NOTE | 2021-05-06 06:31 | NUR ---
Problems reprioritized. Patient report given, questions answered & plan of care reviewed with AISSATOU Martinez.
--- NOTE | 2021-05-06 06:33 | NUR ---
I have reviewed and agree with all interventions, assessments performed and documented by AISSATOU Jameson.
[2021-05-06 07:00] VITALS: BP 122/79
[2021-05-06] MEDS ORDERED: K and/or MAG REPLACEMENT MC SCH (08:00)
[2021-05-06] MEDS: docusate sod 100mg capsule PO SCH (08:00)
[2021-05-06] MEDS: enoxaparin 40mg/0.4ml syringe SUBCUT SCH (08:58)
[2021-05-06] MEDS: metoprolol succinate 25mg (24-HOUR) SR. Tablet PO SCH (08:59)
[2021-05-06] MEDS: lactobacillus rhamnosus 10,000 MMU CELLS/CAPSULE PO SCH (09:00)
[2021-05-06] MEDS: spironolactone 25 MG tablet PO SCH (09:00)
[2021-05-06] MEDS: aspirin 81mg tab.chew PO SCH (09:01)
[2021-05-06] MEDS: atorvastatin 10mg tablet PO SCH (09:01)
[2021-05-06] MEDS: lisinopril 5mg tablet PO SCH (09:01)
[2021-05-06] MEDS: insulin Lispro (HumaLOG) vial - multi-dose SQ SCH (09:20)
[2021-05-06] MEDS: cefepime 1GM in D5W 50mL 50 ML IV SCH (09:25)
[2021-05-06] MEDS ORDERED: potassium Cl 20 mEq SR tablet PO STA (09:50)
[2021-05-06] MEDS: insulin glargine (Lantus) pen - multi-dose SQ SCH (09:51)
[2021-05-06] MEDS ORDERED: DOXY100C2 PO (10:55)
[2021-05-06] MEDS ORDERED: CEPH-585 PO (10:55)
[2021-05-06 11:00] VITALS: BP 104/61
[2021-05-06 11:18] VITALS: BP 109/66
--- NOTE | 2021-05-06 12:04 | NUR ---
PAGER ID: [phone] MESSAGE: Michelle-Surg [id number] Re: [id number] Shakir were you going to send him with pain medication. I can come bulk picker script.
[2021-05-06] MEDS ORDERED: HYDR-3965 PO (12:50)
[2021-05-06] MEDS ORDERED: vancomycin/NS 1 GM ADD-VANTAGE 250 ML IV SCH (13:00)
--- NOTE | 2021-05-06 13:50 | NUR ---
Patient discharge instructions reviewed with patient and patient verbalized understanding. Patients IV dc'd cannula intact. Patient advised is not to drive when taking [place]. Patient verbalized understanding and is aware to go and citrus picker his medication at [facility]. Patient is driving his own vehicle this is why his discharge was not until 1330 due to he was driving home. Patient states he has all his belongings. Patient taken to vehicle via wheelchair.
[2021-05-07] MEDS ORDERED: VANCOMYCIN LEVEL IV ONE (12:30)
== END 2021-05-06 13:50 | disposition home or self-care (01) | DRG 720 ==
LOC: ER 13:55 → ED HOLD 16:28 → SUR 3N 19:30
PROVIDERS: ADMIT Family Medicine; ATTEND Family Medicine
DX: A41.9 Sepsis, unspecified organism (principal); N17.0 Acute kidney failure with tubular necrosis; L03.113 Cellulitis of right upper limb; I13.0 Hypertensive heart and chronic kidney disease with heart failure and stage 1 through stage 4 chronic kidney disease, or unspecified chronic kidney disease; E87.1 Hypo-osmolality and hyponatremia; I50.22 Chronic systolic (congestive) heart failure; I95.9 Hypotension, unspecified; I42.7 Cardiomyopathy due to drug and external agent; E11.22 Type 2 diabetes mellitus with diabetic chronic kidney disease; M70.31 Other bursitis of elbow, right elbow; I48.91 Unspecified atrial fibrillation; J44.9 Chronic obstructive pulmonary disease, unspecified; N18.9 Chronic kidney disease, unspecified; F15.90 Other stimulant use, unspecified, uncomplicated; M25.421 Effusion, right elbow; Z79.899 Other long term (current) drug therapy; Z79.4 Long term (current) use of insulin; Z71.51 Drug abuse counseling and surveillance of drug abuser
CPT/HCPCS: 36415; 71045; 73080; 80048; 80053; 80202; 80305; 80320; 82948; 83036; 83605; 83735; 83880; 84484; 85025; 85651; 86140; 87040; 87081; 93005; 96365; 99285; G0378; J0692; J1650; J1815; J2543; J3370; J7030; J7040

== ENCOUNTER 2021-10-12 22:36 | Emergency (ER) | payer MEDICAID, OTHER ==
[~2021-10-12] VITALS: Ht 175.3 cm; Wt 115.0 kg
[~2021-10-12 22:36] MED LIST changes: +ASPI-1144 PO; -ASPI-611 PO; +CEPH-585 PO; -FURO-149 PO; -INSU100I45 SQ; +INSU100V43 SQ; +LISI5TAB22 PO; +METO-384 PO; -METO-395 PO; +PRAV40TA3 PO; -SPIR25TA PO; +SPIR25TA5 PO
[2021-10-12 23:06] LABS: BASOPHILS # (AUTO) 0.1 X10'3 (0-0.2); BASOPHILS % (AUTO) 0.6 % (0-1); EOSINOPHILS # (AUTO) 0.1 X10'3 (0-0.9); EOSINOPHILS % (AUTO) 0.7 % (0-6); HEMATOCRIT 52.3 % (42.0-52.0); HEMOGLOBIN 17.6 g/dl (14.0-17.9); LYMPHOCYTES # (AUTO) 1.6 X10'3 (1.1-4.8); LYMPHOCYTES % (AUTO) 18.4 % (21-51); MEAN CORPUSCULAR HGB CONC 33.8 g/dL (33.0-36.5); MEAN CORPUSCULAR VOLUME 82.9 FL (78-98); MEAN PLATELET VOLUME 7.4 FL (7.4-10.4); MONOCYTES # (AUTO) 0.5 X10'3 (0-0.9); MONOCYTES % (AUTO) 5.9 % (2-12); NEUTROPHILS # (AUTO) 6.6 X10'3 (1.8-7.7); NEUTROPHILS % (AUTO) 74.4 % (42-75); PLATELET COUNT 368 X10'3 (140-440); RED CELL DISTRIBUTION WIDTH 12.9 % (11.5-14.5); WHITE BLOOD COUNT 8.9 X10'3 (4.5-11.0)
[2021-10-12 23:16] LABS: ALANINE AMINOTRANSFERASE 14 U/L (12-78); ALBUMIN 2.5 G/DL (3.4-5.0); ALBUMIN/GLOBULIN RATIO 0.5 (1.1-1.5); ALKALINE PHOSPHATASE 93 IU/L (46-116); ANION GAP 8 (8-16); ASPARTATE AMINO TRANSFERASE 12 U/L (10-37); BILIRUBIN,TOTAL 0.6 MG/DL (0.1-1.0); BLOOD UREA NITROGEN 17 MG/DL (7-18); BUN/CREATININE RATIO 13.3 (5.4-32.0); CALCIUM 8.6 MG/DL (8.5-10.1); CHLORIDE 99 MMOL/L (99-107); CREATININE 1.28 MG/DL (0.60-1.10); GLUCOSE 318 MG/DL (70-104); POTASSIUM 4.8 MMOL/L (3.5-5.1); SODIUM 134 MMOL/L (135-145); TOTAL CARBON DIOXIDE 26.8 MMOL/L (24-32); TOTAL PROTEIN 7.7 G/DL (6.4-8.2); eGFR 61 ML/MIN
[2021-10-13] MEDS ORDERED: furosemide 20MG tablet PO ONE
[2021-10-13] MEDS ORDERED: FURO-150 PO (00:01)
[2021-10-13 00:20] VITALS: BP 109/70
== END 2021-10-13 00:26 | disposition home or self-care (01) ==
LOC: ER 22:36
DX: I11.0 Hypertensive heart disease with heart failure (principal); I50.9 Heart failure, unspecified; R06.02 Shortness of breath; E11.65 Type 2 diabetes mellitus with hyperglycemia; I44.7 Left bundle-branch block, unspecified; J44.9 Chronic obstructive pulmonary disease, unspecified; F15.90 Other stimulant use, unspecified, uncomplicated; Z79.4 Long term (current) use of insulin; Z98.890 Other specified postprocedural states; Z79.82 Long term (current) use of aspirin; Z79.2 Long term (current) use of antibiotics; Z79.899 Other long term (current) drug therapy
CPT/HCPCS: 36415; 71045; 80053; 83880; 84484; 85025; 93005; 99285

== ENCOUNTER 2021-10-29 15:00 | Inpatient (IN) | payer OTHER ==
[~2021-10-29] VITALS: Ht 175.3 cm; Wt 125.0 kg
[~2021-10-29 15:00] MED LIST changes: +FURO-150 PO
[2021-10-29] MEDS ORDERED: normal saline 1000ml 1,000 ML IV ONE (16:30)
[2021-10-29 16:31] LABS: BASOPHILS # (AUTO) 0.1 X10'3 (0-0.2); BASOPHILS % (AUTO) 0.6 % (0-1); EOSINOPHILS # (AUTO) 0.1 X10'3 (0-0.9); EOSINOPHILS % (AUTO) 0.9 % (0-6); HEMATOCRIT 42.9 % (42.0-52.0); HEMOGLOBIN 14.6 g/dl (14.0-17.9); LYMPHOCYTES # (AUTO) 1.4 X10'3 (1.1-4.8); LYMPHOCYTES % (AUTO) 11.1 % (21-51); MEAN CORPUSCULAR HEMOGLOBIN 28.5 PG (27.0-31.0); MEAN CORPUSCULAR HGB CONC 34.1 g/dL (33.0-36.5); MEAN CORPUSCULAR VOLUME 83.6 FL (78-98); MEAN PLATELET VOLUME 7.4 FL (7.4-10.4); MONOCYTES # (AUTO) 1.1 X10'3 (0-0.9); MONOCYTES % (AUTO) 8.3 % (2-12); NEUTROPHILS % (AUTO) 79.1 % (42-75); PLATELET COUNT 324 X10'3 (140-440); RED BLOOD COUNT 5.13 X10'6 (4.70-6.10); RED CELL DISTRIBUTION WIDTH 13.4 % (11.5-14.5); WHITE BLOOD COUNT 12.6 X10'3 (4.5-11.0)
[2021-10-29] MEDS ORDERED: vancomycin/NS 1 GM ADD-VANTAGE 250 ML IV ONE (16:35)
[2021-10-29 16:55] LABS: ALANINE AMINOTRANSFERASE 25 U/L (12-78); ALBUMIN 2.4 G/DL (3.4-5.0); ALBUMIN/GLOBULIN RATIO 0.5 (1.1-1.5); ALKALINE PHOSPHATASE 128 IU/L (46-116); ANION GAP 8 (8-16); ASPARTATE AMINO TRANSFERASE 22 U/L (10-37); BILIRUBIN,TOTAL 0.4 MG/DL (0.1-1.0); BLOOD UREA NITROGEN 20 MG/DL (7-18); BUN/CREATININE RATIO 19.2 (5.4-32.0); CALCIUM 8.2 MG/DL (8.5-10.1); CHLORIDE 102 MMOL/L (99-107); CREATININE 1.04 MG/DL (0.60-1.10); GLUCOSE 361 MG/DL (70-104); POTASSIUM 4.3 MMOL/L (3.5-5.1); SODIUM 133 MMOL/L (135-145); TOTAL CARBON DIOXIDE 22.8 MMOL/L (24-32); TOTAL PROTEIN 7.1 G/DL (6.4-8.2); eGFR 78 ML/MIN
[2021-10-29 17:12] LABS: CREATINE KINASE 99 U/L (39-308)
[2021-10-29] MEDS ORDERED: heparin 25,000 UNIT/250ml bag 250 ML IV SCH ×2 (17:30→17:50)
[2021-10-29] MEDS ORDERED: heparin 10,000 units/1 ML INJ IV ONE ×3 (17:30→17:35)
[2021-10-29] MEDS ORDERED: heparin 10,000 units/1 ML INJ IV PRN ×2 (17:35→17:50)
[2021-10-29] MEDS ORDERED: magnesium Cl slow-release 64mg tablet PO PRN (17:45)
[2021-10-29] MEDS ORDERED: magnesium 2GM in 50ml NS 50 ML IV PRN (17:45)
[2021-10-29] MEDS ORDERED: potassium CL 10mEq/100ml bag 100 ML IV PRN (17:45)
[2021-10-29] MEDS ORDERED: potassium Cl 20 mEq SR tablet PO PRN ×2 (17:45)
[2021-10-29] MEDS ORDERED: magnesium 4gm in 100ml NS 100 ML IV PRN (17:45)
[2021-10-29] MEDS ORDERED: acetaminophen 325mg tablet PO PRN (17:45)
[2021-10-29] MEDS ORDERED: naloxone 0.4 mg/ml inj IV PRN (17:45)
[2021-10-29] MEDS ORDERED: ondansetron/PF 4mg/2ml inj IV PRN (17:45)
[2021-10-29] MEDS ORDERED: DEXTROSE 15 GM of carb/4 tabs (each vial/BOTTLE has 4 tablets) PO PRN ×2 (17:50)
[2021-10-29] MEDS ORDERED: dextrose 50%-water 50ml dispensing syringe IV PRN ×2 (17:50)
[2021-10-29] MEDS ORDERED: MESSAGE TO PHARMACY PO ONE (17:50)
[2021-10-29] MEDS ORDERED: glucagon, human recombinant 1mg kit SUBCUT PRN (17:50)
[2021-10-29] MEDS: heparin 25,000 UNIT/250ml bag 250 ML IV SCH (18:15)
[2021-10-29 18:20] LABS: APTT 28 SECONDS (22-32); D-DIMER 0.85 MG/L FEU (0-0.50)
--- NOTE | 2021-10-29 18:30 | NUR ---
Pt pink, alert, no acute/resp distress. PIV site c/d/i s complication or adverse reaction. Bed in lowest position, wheels locked, rails up. Will continue to monitor for acute changes and further needs.
[2021-10-29] MEDS: HYDROcodone/acetaminophen 5mg/325mg tablet PO PRN (19:45)
[2021-10-29] MEDS: K and/or MAG REPLACEMENT MC SCH (19:54)
[2021-10-29] MEDS ORDERED: heparin, porcine 5000 units/ml vial SQ SCH (20:00)
[2021-10-29 20:17] LABS: HEMOGLOBIN A1C 12.3 % (4.5-6.2)
[2021-10-29 20:22] LABS: POTASSIUM 3.8 MMOL/L (3.5-5.1)
[2021-10-29] MEDS: insulin glargine (Lantus) pen - multi-dose SQ SCH (20:37)
[2021-10-29] MEDS: insulin Lispro (HumaLOG) vial - multi-dose SQ SCH (20:40)
[2021-10-29] MEDS: docusate sod 100mg capsule PO SCH (20:46)
--- NOTE | 2021-10-29 21:50 | NUR ---
Pt pink, alert, no acute/resp distress. PIV site c/d/i s complication or adverse reaction. Bed in lowest position, wheels locked, rails up. Will continue to monitor for acute changes and further needs. Pt reposition self as needed.
[2021-10-29 22:30] VITALS: BP 132/57
[2021-10-30] VITALS (7 sets, daily range): BP systolic 134–173; BP diastolic 59–126
[2021-10-30] MEDS: cefepime 1GM/NS ADD-VANTAGE 100 ML IV SCH ×4 (00:41→23:17)
[2021-10-30] MEDS: VANCOmycin 1250MG/NS 250ml Bag 250 ML IV SCH ×3 (00:41→17:48)
--- NOTE | 2021-10-30 06:26 | NUR ---
Patient in room PCU 3014. I have received report from AISSATOU Mejía and had the opportunity to ask questions and assume patient care.
[2021-10-30 06:46] LABS: BASOPHILS # (AUTO) 0.1 X10'3 (0-0.2); BASOPHILS % (AUTO) 0.7 % (0-1); EOSINOPHILS # (AUTO) 0.2 X10'3 (0-0.9); EOSINOPHILS % (AUTO) 1.5 % (0-6); HEMATOCRIT 46.5 % (42.0-52.0); HEMOGLOBIN 15.4 g/dl (14.0-17.9); LYMPHOCYTES # (AUTO) 2.7 X10'3 (1.1-4.8); LYMPHOCYTES % (AUTO) 24.8 % (21-51); MEAN CORPUSCULAR HEMOGLOBIN 28.3 PG (27.0-31.0); MEAN CORPUSCULAR HGB CONC 33.2 g/dL (33.0-36.5); MEAN CORPUSCULAR VOLUME 85.2 FL (78-98); MEAN PLATELET VOLUME 7.5 FL (7.4-10.4); MONOCYTES # (AUTO) 1.3 X10'3 (0-0.9); MONOCYTES % (AUTO) 11.9 % (2-12); NEUTROPHILS # (AUTO) 6.6 X10'3 (1.8-7.7); NEUTROPHILS % (AUTO) 61.1 % (42-75); PLATELET COUNT 312 X10'3 (140-440); RED BLOOD COUNT 5.45 X10'6 (4.70-6.10); RED CELL DISTRIBUTION WIDTH 13.4 % (11.5-14.5); WHITE BLOOD COUNT 10.7 X10'3 (4.5-11.0)
[2021-10-30 07:32] LABS: ALBUMIN 2.4 G/DL (3.4-5.0); ANION GAP 8 (8-16); BLOOD UREA NITROGEN 21 MG/DL (7-18); BUN/CREATININE RATIO 18.4 (5.4-32.0); CALCIUM 8.5 MG/DL (8.5-10.1); CHLORIDE 104 MMOL/L (99-107); CREATININE 1.14 MG/DL (0.60-1.10); GLUCOSE 268 MG/DL (70-104); MAGNESIUM 2.3 MG/DL (1.5-2.4); SODIUM 138 MMOL/L (135-145); TOTAL CARBON DIOXIDE 26.5 MMOL/L (24-32); eGFR 70 ML/MIN
[2021-10-30] MEDS: K and/or MAG REPLACEMENT MC SCH ×2 (08:00→20:00)
[2021-10-30] MEDS: heparin 25,000 UNIT/250ml bag 250 ML IV SCH ×2 (08:23→22:02)
[2021-10-30] MEDS: insulin Lispro (HumaLOG) vial - multi-dose SQ SCH ×2 (09:26→13:32)
[2021-10-30] MEDS: HYDROcodone/acetaminophen 5mg/325mg tablet PO PRN ×3 (10:11→23:29)
[2021-10-30] MEDS: docusate sod 100mg capsule PO SCH ×2 (10:11→21:57)
--- NOTE | 2021-10-30 12:06 | NUR ---
Noted pt with T2DM, poorly controlled with A1c 12.3% which is up from 10.5% at most recent admit 05/04/21. Pt seen at bedside for written and verbal DM education. Pt reports he hasn't seen a physician for DM management because they keep changing at [facility] though states he is planning on scheduling an appointment. Pt unable to report the last time he had an appointment for DM. Pt states he takes his insulin per rx and checks his BG levels daily with resulting numbers in the 300s, which is consistent with current A1c. Upon further discussion pt reports not having electricity at home so he is unable to store his insulin at an appropriate temperature, then states he has a fridge at work where he stores his insulin. Recommend SW consult for concerns regarding insulin management. Pt states he doesn't follow any specific diet at home though does limit fast food intake. RD encouraged better control of DM management to prevent secondary complications especially in view of current left foot cellulitis/diabetic food infection. Pt verbalized understanding. RD contact information provided and pt encouraged to reach out for any additional questions. Pt endorses a good appetite and states he's getting full from meals. Pt denies any food allergies or difficulty chewing/swallowing. Will continue to follow. Addendum: 10/30/21 at [address] Amended: Links added.
[2021-10-30 13:40] LABS: APTT 46 SECONDS (22-32)
--- NOTE | 2021-10-30 18:49 | NUR ---
Problems reprioritized. Patient report given, questions answered & plan of care reviewed with AISSATOU Hargrove.
[2021-10-30 21:13] LABS: APTT 44 SECONDS (22-32)
[2021-10-30] MEDS: insulin glargine (Lantus) pen - multi-dose SQ SCH (21:43)
[2021-10-30] MEDS: carVEDilol 12.5mg tablet PO SCH (21:57)
[2021-10-30] MEDS: spironolactone 25 MG tablet PO SCH (21:57)
[2021-10-30] MEDS ORDERED: VANCOMYCIN LEVEL IV ONE (23:30)
[2021-10-31] MEDS: VANCOmycin 1250MG/NS 250ml Bag 250 ML IV SCH (00:05)
[2021-10-31 02:00] VITALS: BP 160/74
[2021-10-31 06:00] VITALS: BP 140/72
[2021-10-31 06:29] LABS: ALBUMIN 2.1 G/DL (3.4-5.0); ANION GAP 10 (8-16); BLOOD UREA NITROGEN 23 MG/DL (7-18); BUN/CREATININE RATIO 20.5 (5.4-32.0); CALCIUM 7.8 MG/DL (8.5-10.1); CHLORIDE 101 MMOL/L (99-107); CREATININE 1.12 MG/DL (0.60-1.10); GLUCOSE 237 MG/DL (70-104); MAGNESIUM 2.1 MG/DL (1.5-2.4); SODIUM 133 MMOL/L (135-145); TOTAL CARBON DIOXIDE 22.3 MMOL/L (24-32); eGFR 71 ML/MIN
[2021-10-31 06:42] LABS: BASOPHILS # (AUTO) 0.1 X10'3 (0-0.2); BASOPHILS % (AUTO) 0.8 % (0-1); EOSINOPHILS # (AUTO) 0.1 X10'3 (0-0.9); EOSINOPHILS % (AUTO) 1.5 % (0-6); HEMATOCRIT 44.6 % (42.0-52.0); HEMOGLOBIN 14.9 g/dl (14.0-17.9); LYMPHOCYTES # (AUTO) 2.1 X10'3 (1.1-4.8); MEAN CORPUSCULAR HEMOGLOBIN 28.2 PG (27.0-31.0); MEAN CORPUSCULAR HGB CONC 33.4 g/dL (33.0-36.5); MEAN CORPUSCULAR VOLUME 84.6 FL (78-98); MEAN PLATELET VOLUME 8.3 FL (7.4-10.4); MONOCYTES # (AUTO) 1.1 X10'3 (0-0.9); MONOCYTES % (AUTO) 10.7 % (2-12); NEUTROPHILS # (AUTO) 6.6 X10'3 (1.8-7.7); PLATELET COUNT 311 X10'3 (140-440); RED BLOOD COUNT 5.27 X10'6 (4.70-6.10); RED CELL DISTRIBUTION WIDTH 13.4 % (11.5-14.5); WHITE BLOOD COUNT 9.9 X10'3 (4.5-11.0)
[2021-10-31] MEDS ORDERED: metoprolol succinate 25mg (24-HOUR) SR. Tablet PO SCH (08:00)
[2021-10-31] MEDS: K and/or MAG REPLACEMENT MC SCH ×2 (08:00→20:00)
[2021-10-31] MEDS: carVEDilol 12.5mg tablet PO SCH ×2 (08:38→21:57)
[2021-10-31] MEDS: spironolactone 25 MG tablet PO SCH ×2 (08:41→22:00)
[2021-10-31] MEDS: aspirin 81mg tab.chew PO SCH (08:42)
[2021-10-31] MEDS: lisinopril 5mg tablet PO SCH (08:42)
[2021-10-31] MEDS: atorvastatin 10mg tablet PO SCH (08:42)
[2021-10-31] MEDS: docusate sod 100mg capsule PO SCH ×2 (08:42→21:56)
[2021-10-31] MEDS: cefepime 1GM/NS ADD-VANTAGE 100 ML IV SCH ×2 (08:43→16:25)
[2021-10-31] MEDS: vancomycin/NS 1 GM ADD-VANTAGE 250 ML IV SCH ×2 (08:43→16:25)
[2021-10-31] MEDS: insulin Lispro (HumaLOG) vial - multi-dose SQ SCH ×3 (08:45→18:00)
[2021-10-31] MEDS: heparin 25,000 UNIT/250ml bag 250 ML IV SCH (08:59)
[2021-10-31 11:00] VITALS: BP 124/82
[2021-10-31] MEDS ORDERED: iohexol 300mg/ml 100ml inj. ONE (12:17)
--- NOTE | 2021-10-31 14:00 | NUR ---
Pt returned from Ct, transported by RN on monitor via wheelchair. Pt back in bed, appears comfortable.
[2021-10-31 15:00] VITALS: BP 118/79
[2021-10-31 18:00] VITALS: BP 103/62
--- NOTE | 2021-10-31 18:41 | NUR ---
Heparin dripped turned off. Pharm called to clarify Will admin lovenox in AM
[2021-10-31] MEDS: insulin glargine (Lantus) pen - multi-dose SQ SCH (21:00)
[2021-10-31] MEDS: enoxaparin 30mg/0.3ml syringe SUBCUT SCH (21:56)
[2021-10-31] MEDS: enoxaparin 100mg/ml syringe SUBCUT SCH (21:56)
[2021-10-31 22:00] VITALS: BP 117/76
[2021-11-01 02:00] VITALS: BP 107/76
[2021-11-01] MEDS: cefepime 1GM/NS ADD-VANTAGE 100 ML IV SCH ×2 (02:45→08:29)
[2021-11-01] MEDS: vancomycin/NS 1 GM ADD-VANTAGE 250 ML IV SCH ×2 (02:45→08:28)
[2021-11-01 06:00] VITALS: BP 126/73
[2021-11-01] MEDS ORDERED: VANCOMYCIN LEVEL IV ONE (07:30)
[2021-11-01] MEDS: K and/or MAG REPLACEMENT MC SCH (08:00)
[2021-11-01 08:29] LABS: ALBUMIN 2.2 G/DL (3.4-5.0); ANION GAP 13 (8-16); BLOOD UREA NITROGEN 28 MG/DL (7-18); BUN/CREATININE RATIO 23.9 (5.4-32.0); CALCIUM 8.1 MG/DL (8.5-10.1); CHLORIDE 102 MMOL/L (99-107); CREATININE 1.17 MG/DL (0.60-1.10); GLUCOSE 146 MG/DL (70-104); MAGNESIUM 2.2 MG/DL (1.5-2.4); POTASSIUM 4.1 MMOL/L (3.5-5.1); SODIUM 135 MMOL/L (135-145); TOTAL CARBON DIOXIDE 20.2 MMOL/L (24-32); eGFR 68 ML/MIN
[2021-11-01] MEDS: enoxaparin 30mg/0.3ml syringe SUBCUT SCH (08:29)
[2021-11-01] MEDS: enoxaparin 100mg/ml syringe SUBCUT SCH (08:29)
[2021-11-01] MEDS: carVEDilol 12.5mg tablet PO SCH (08:30)
[2021-11-01] MEDS: aspirin 81mg tab.chew PO SCH (08:31)
[2021-11-01] MEDS: spironolactone 25 MG tablet PO SCH (08:31)
[2021-11-01] MEDS: lisinopril 5mg tablet PO SCH (08:31)
[2021-11-01] MEDS: atorvastatin 10mg tablet PO SCH (08:31)
[2021-11-01] MEDS: docusate sod 100mg capsule PO SCH (08:31)
[2021-11-01] MEDS: insulin Lispro (HumaLOG) vial - multi-dose SQ SCH ×2 (08:39→13:36)
[2021-11-01 08:52] LABS: BASOPHILS # (AUTO) 0.1 X10'3 (0-0.2); BASOPHILS % (AUTO) 0.7 % (0-1); EOSINOPHILS # (AUTO) 0.1 X10'3 (0-0.9); EOSINOPHILS % (AUTO) 1.3 % (0-6); HEMATOCRIT 45.5 % (42.0-52.0); HEMOGLOBIN 15.2 g/dl (14.0-17.9); LYMPHOCYTES # (AUTO) 1.8 X10'3 (1.1-4.8); LYMPHOCYTES % (AUTO) 19.4 % (21-51); MEAN CORPUSCULAR HEMOGLOBIN 28.4 PG (27.0-31.0); MEAN CORPUSCULAR HGB CONC 33.3 g/dL (33.0-36.5); MEAN CORPUSCULAR VOLUME 85.1 FL (78-98); MEAN PLATELET VOLUME 8.2 FL (7.4-10.4); MONOCYTES # (AUTO) 0.9 X10'3 (0-0.9); MONOCYTES % (AUTO) 9.4 % (2-12); NEUTROPHILS # (AUTO) 6.5 X10'3 (1.8-7.7); NEUTROPHILS % (AUTO) 69.2 % (42-75); PLATELET COUNT 355 X10'3 (140-440); RED BLOOD COUNT 5.35 X10'6 (4.70-6.10); RED CELL DISTRIBUTION WIDTH 13.1 % (11.5-14.5); WHITE BLOOD COUNT 9.4 X10'3 (4.5-11.0)
[2021-11-01 11:00] VITALS: BP 124/87
[2021-11-01] MEDS ORDERED: VANCOMYCIN 750MG IV in NS 250 ML IV SCH (12:00)
--- NOTE | 2021-11-01 13:08 | NUR ---
Initial: Pt admitted w/ acute on chronic systolic heart failure, cardiomyopathy, and cellulitis on L foot per EMR. Currently on Carb controlled diet w/ mostly 100% intake of meals meeting est nutrient needs at this time. WOC pending for L foot at this time. LBM 10/30 receiving routine colace. Will continue to monitor and make recommendations as appropriate. Recs: 1. Continue Carb controlled diet as tolerated 2. Double Protein BIDBD for satiety 3. Bowel care per rx 4. Scaled wts Addendum: 11/01/21 at [address] Amended: Links added.
--- NOTE | 2021-11-01 13:58 | NUR ---
patient left AMA, signed the waiver form, notified. tried to talk to patient but he is really decided to leave.
[2021-11-01] MEDS ORDERED: warfarin 5mg tablet PO ONE (21:00)
[2021-11-02] MEDS ORDERED: VANCOMYCIN LEVEL IV ONE (11:30)
== END 2021-11-01 13:56 | disposition left against medical advice (07) | DRG 871 ==
LOC: ER 15:03 → ED HOLD 19:02 → PCU 3S 22:25
PROVIDERS: ADMIT Internal Medicine; ATTEND Family Medicine
PROC: BQ2 Imaging, Non-Axial Lower Bones, Computerized Tomography (CT Scan) (ICD-10-PCS; principal; 2021-10-31)
DX: A41.9 Sepsis, unspecified organism (principal); I50.23 Acute on chronic systolic (congestive) heart failure; E11.52 Type 2 diabetes mellitus with diabetic peripheral angiopathy with gangrene; I42.0 Dilated cardiomyopathy; L03.116 Cellulitis of left lower limb; Z20.822 Contact with and (suspected) exposure to COVID-19; E11.628 Type 2 diabetes mellitus with other skin complications; E11.65 Type 2 diabetes mellitus with hyperglycemia; E78.5 Hyperlipidemia, unspecified; E11.621 Type 2 diabetes mellitus with foot ulcer; L97.529 Non-pressure chronic ulcer of other part of left foot with unspecified severity; I11.0 Hypertensive heart disease with heart failure; I51.3 Intracardiac thrombosis, not elsewhere classified; J44.9 Chronic obstructive pulmonary disease, unspecified; Z53.29 Procedure and treatment not carried out because of patient's decision for other reasons; Z59.7 Insufficient social insurance and welfare support; Z79.4 Long term (current) use of insulin; Z79.899 Other long term (current) drug therapy; Z82.49 Family history of ischemic heart disease and other diseases of the circulatory system; Z71.51 Drug abuse counseling and surveillance of drug abuser
CPT/HCPCS: 36415; 73701; 80048; 80053; 80202; 82550; 82553; 82948; 83036; 83605; 83735; 83880; 84132; 84145; 84484; 85025; 85379; 85610; 85730; 87040; 87081; 87635; 93005; 93306; 93925; 99291; C9803; G0378; J0692; J1644; J1650; J1815; J3370; J7030; J7050; Q9967